=== PATIENT | male | born 1955 ===

== ENCOUNTER 2020-08-24 08:53 | Outpatient (REF) | payer OTHER, SELFPAY ==
[2020-08-24 10:06] LABS: Alanine Aminotransferase 25 U/L (0-40); Albumin Level 4.5 g/dL (3.5-5.0); Alkaline Phosphatase 98 U/L (39-117); Anion Gap 15 (12-20); Aspartate Amino Transferase 19 U/L (5-37); Bilirubin Total 1.1 mg/dL (0.0-1.0); Blood Urea Nitrogen 11 mg/dL (9-16); Calcium 9.5 mg/dL (8.4-10.2); Carbon Dioxide 28 mmol/L (22-29); Chloride 105 mmol/L (96-108); Estimated Glomerular Filt Rate > 60; Glucose Random 121 mg/dL (60-115); Potassium 4.4 mmol/l (3.3-5.1); Sodium 144 mmol/L (135-145); Total Protein 7.1 g/dL (6.5-8.0)
[2020-08-24 10:16] LABS: Estimated Average Glucose 123 mg/dL; Hemoglobin A1c % 5.9 %
== END 2020-08-24 08:54 | disposition home or self-care (01) ==
LOC: HO.LAB 08:53
PROVIDERS: PCP Internal Medicine; Visit Provider Internal Medicine
DX: R73.01 Impaired fasting glucose (principal); J45.909 Unspecified asthma, uncomplicated; G47.33 Obstructive sleep apnea (adult) (pediatric)
CPT/HCPCS: 36415; 80053; 83036

== ENCOUNTER → 2020-08-27 11:48 | Outpatient (BNVA) | payer OTHER, SELFPAY | PROVIDERS: PCP Internal Medicine; Referring Provider Internal Medicine; Visit Provider Urology | DX: N40.1 Benign prostatic hyperplasia with lower urinary tract symptoms (principal); R35.1 Nocturia; N20.0 Calculus of kidney; N28.1 Cyst of kidney, acquired | CPT/HCPCS: Q3014 ==

== ENCOUNTER → 2020-10-29 10:50 | Outpatient (BNVA) | payer OTHER, SELFPAY | PROVIDERS: Visit Provider Urology | DX: Z13.89 Encounter for screening for other disorder (principal) | CPT/HCPCS: Q3014 ==

== ENCOUNTER → 2020-11-03 09:01 | Outpatient (BNVA) | payer OTHER, SELFPAY | PROVIDERS: PCP Internal Medicine; Visit Provider Psychiatry & Neurology Neurology | DX: G47.33 Obstructive sleep apnea (adult) (pediatric) (principal); N40.1 Benign prostatic hyperplasia with lower urinary tract symptoms; R35.1 Nocturia; N28.1 Cyst of kidney, acquired; N20.0 Calculus of kidney; Z88.6 Allergy status to analgesic agent; Z88.0 Allergy status to penicillin; Z88.8 Allergy status to other drugs, medicaments and biological substances; Z99.89 Dependence on other enabling machines and devices | CPT/HCPCS: Q3014 ==

== ENCOUNTER 2021-01-18 08:20 | Outpatient (REF) | payer OTHER, SELFPAY ==
[2021-01-18 09:20] LABS: MANUAL DIFF FLAG NO
[2021-01-18 09:25] LABS: Basophils Percent Auto 0.5 % (0-2); Eosinophils Absolute Auto 0.2 X10*3/uL (0.0-0.4); Eosinophils Percent Auto 2.6 % (0-4); Hematocrit 47.8 % (42-52); Hemoglobin 15.7 g/dl (14.0-18.0); Imm Gran Abs Auto 0.01 X10*3/uL (0.00-0.03); Imm Gran Pct Auto 0.2 % (0.0-0.4); Lymphocytes Percent Auto 32.5 % (20-40); Mean Corpuscular HGB Conc 32.8 g/dl (31.0-36.0); Mean Corpuscular Hemoglobin 28.1 pg (27.0-33.0); Mean Corpuscular Volume 85.5 fL (80-98); Mean Platelet Volume 10.7 fL (9.4-12.4); Monocytes Absolute Auto 0.5 X10*3/uL (0.1-1.2); Monocytes Percent Auto 7.8 % (2-11); Neutrophils Absolute Auto 3.5 X10*3/uL (2.0-8.3); Neutrophils Percent Auto 56.4 % (45-73); Platelet Count 184 X10*3/uL (160-400); Red Blood Count 5.59 X10*6/uL (4.60-5.80); Red Cell Distribution Width 12.8 % (11.0-16.0); White Blood Count 6.3 X10*3/uL (4.8-10.8)
[2021-01-18 09:49] LABS: Estimated Average Glucose 126 mg/dL
[2021-01-18 09:58] LABS: Alanine Aminotransferase 33 U/L (0-40); Albumin Level 4.3 g/dL (3.5-5.0); Alkaline Phosphatase 94 U/L (39-117); Anion Gap 11 (12-20); Aspartate Amino Transferase 24 U/L (5-37); Bilirubin Total 0.9 mg/dL (0.0-1.0); Blood Urea Nitrogen 14 mg/dL (9-16); Calcium 9.1 mg/dL (8.4-10.2); Carbon Dioxide 26 mmol/L (22-29); Chloride 108 mmol/L (96-108); Cholesterol 154 mg/dL; Estimated Glomerular Filt Rate > 60; Glucose Random 125 mg/dL (60-115); HDL Cholesterol 46 mg/dL; LDL Cholesterol Calculated 82 mg/dl; Potassium 4.2 mmol/L (3.3-5.1); Sodium 141 mmol/L (135-145); Total Protein 6.8 g/dL (6.5-8.0); Triglycerides 133 mg/dL
== END 2021-01-18 08:21 | disposition home or self-care (01) ==
LOC: HO.LAB 08:20
PROVIDERS: PCP Internal Medicine; Visit Provider Internal Medicine
DX: E78.00 Pure hypercholesterolemia, unspecified (principal); I10 Essential (primary) hypertension; R73.01 Impaired fasting glucose
CPT/HCPCS: 36415; 80053; 80061; 83036; 85025

== ENCOUNTER → 2021-05-18 08:24 | Outpatient (REF) | payer OTHER, SELFPAY | LOC: HO.SL 08:24 | PROVIDERS: PCP Internal Medicine; Visit Provider Psychiatry & Neurology Neurology | DX: G47.33 Obstructive sleep apnea (adult) (pediatric) (principal) | CPT/HCPCS: 99211 ==

== ENCOUNTER 2021-10-21 10:17 | Outpatient (REF) | payer OTHER, SELFPAY ==
--- NOTE | ~2021-10-21 | US_ITS ---
EXAMINATION: US RETROPERITONEAL LIMITED (RENAL ONLY) CLINICAL INFORMATION: Calculus of kidney. COMPARISON: Renal ultrasound 01/22/2020. Ultrasound abdomen 11/05/2018. CT abdomen and pelvis 08/22/2014. TECHNIQUE: Real-time imaging of the kidneys. FINDINGS: RIGHT KIDNEY: 12.2 x 5.8 x 5.7 cm (SAG x AP x TRV). The kidney is normal in size, contour, and echogenicity. Renal cortical thickness is normal. No calculi or focal parenchymal lesions. No hydronephrosis. LEFT KIDNEY: 11.8 x 5.4 x 5.1 cm (SAG x AP x TRV). The kidney is normal in size, contour, and echogenicity. Renal cortical thickness is normal. No renal calculi or hydronephrosis. Subtle lucency centrally involving the lower pole of the left kidney. This could represent a cyst but a dilated calyx would also be considered. US/US renal BI IMPRESSION: 1. No evidence of radiopaque calculus or hydronephrosis. 2. Sonolucent area in the lower pole of the left kidney could represent an evolving cyst or a dilated calyx. Attention to follow-up.
== END 2021-10-21 10:18 | disposition home or self-care (01) ==
LOC: HO.US 10:17
PROVIDERS: PCP Internal Medicine; Visit Provider Urology
DX: N20.0 Calculus of kidney (principal); N28.1 Cyst of kidney, acquired
CPT/HCPCS: 76775

== ENCOUNTER → 2021-11-19 09:04 | Outpatient (BNVA) | payer OTHER, SELFPAY | PROVIDERS: PCP Internal Medicine; Visit Provider Urology | DX: N28.1 Cyst of kidney, acquired (principal) | CPT/HCPCS: Q3014 ==

== ENCOUNTER 2021-12-28 08:42 | Outpatient (REF) | payer OTHER, SELFPAY ==
[2021-12-28 09:29] LABS: MANUAL DIFF FLAG NO
[2021-12-28 10:05] LABS: Basophils Percent Auto 0.3 % (0-2); Eosinophils Absolute Auto 0.2 X10*3/uL (0.0-0.4); Eosinophils Percent Auto 2.9 % (0-4); Hematocrit 49.2 % (42.0-52.0); Hemoglobin 16.2 g/dl (14.0-18.0); Imm Gran Abs Auto 0.02 X10*3/uL (0.00-0.03); Imm Gran Pct Auto 0.3 % (0.0-0.4); Lymphocytes Absolute Auto 1.7 X10*3/uL (1.2-4.9); Lymphocytes Percent Auto 28.3 % (20-40); Mean Corpuscular HGB Conc 32.9 g/dl (31.0-36.0); Mean Corpuscular Hemoglobin 28.6 pg (27.0-33.0); Mean Corpuscular Volume 86.9 fL (80.0-98.0); Mean Platelet Volume 10.6 fL (9.4-12.4); Monocytes Absolute Auto 0.5 X10*3/uL (0.1-1.2); Monocytes Percent Auto 8.2 % (2-11); Neutrophils Absolute Auto 3.5 x10*3/uL (2.0-8.3); Platelet Count 160 X10*3/uL (160-400); Red Blood Count 5.66 X10*6/uL (4.60-5.80); Red Cell Distribution Width 12.9 % (11.0-16.0); White Blood Count 5.8 X10*3/uL (4.8-10.8)
[2021-12-28 10:08] LABS: Appearance Urine CLEAR; Color Urine YELLOW; Glucose Urine UA NEG (NEG); Leukocyte Esterase Urine NEG (NEG); Nitrite Urine NEG (NEG); Specific Gravity - Urine <= 1.005 (1.005-1.025); Urine Blood NEG (NEG); Urine Ketones NEG (NEG); Urine Protein NEG (NEG-TRACE)
[2021-12-28 11:17] LABS: Anion Gap 14 (12-20); Blood Urea Nitrogen 14 mg/dL (9-16); Calcium 9.8 mg/dL (8.4-10.2); Carbon Dioxide 26 mmol/L (22-29); Chloride 105 mmol/L (96-108); Estimated Glomerular Filt Rate > 60; Potassium 3.8 mmol/L (3.3-5.1); Sodium 141 mmol/L (135-145)
== END 2021-12-28 08:43 | disposition home or self-care (01) ==
LOC: HO.LAB 08:42
PROVIDERS: PCP Internal Medicine; Visit Provider Internal Medicine Hypertension Specialist
DX: N18.1 Chronic kidney disease, stage 1 (principal)
CPT/HCPCS: 36415; 80051; 81003; 82310; 82565; 84520; 85025

== ENCOUNTER 2022-01-18 08:59 | Outpatient (REF) | payer OTHER, SELFPAY ==
[2022-01-18 09:18] LABS: MANUAL DIFF FLAG NO
[2022-01-18 10:12] LABS: Basophils Percent Auto 0.3 % (0-2); Eosinophils Absolute Auto 0.1 X10*3/uL (0.0-0.4); Eosinophils Percent Auto 2.2 % (0-4); Hematocrit 49.1 % (42.0-52.0); Hemoglobin 16.2 g/dl (14.0-18.0); Imm Gran Abs Auto 0.02 X10*3/uL (0.00-0.03); Imm Gran Pct Auto 0.3 % (0.0-0.4); Lymphocytes Absolute Auto 1.6 X10*3/uL (1.2-4.9); Lymphocytes Percent Auto 27.3 % (20-40); Mean Corpuscular Hemoglobin 28.4 pg (27.0-33.0); Mean Platelet Volume 10.8 fL (9.4-12.4); Monocytes Absolute Auto 0.5 X10*3/uL (0.1-1.2); Monocytes Percent Auto 8.2 % (2-11); Neutrophils Absolute Auto 3.7 x10*3/uL (2.0-8.3); Neutrophils Percent Auto 61.7 % (45-73); Platelet Count 169 X10*3/uL (160-400); Red Blood Count 5.71 X10*6/uL (4.60-5.80); Red Cell Distribution Width 13.1 % (11.0-16.0)
[2022-01-18 10:59] LABS: Alanine Aminotransferase 27 U/L (0-40); Albumin Level 4.4 g/dL (3.5-5.0); Alkaline Phosphatase 96 U/L (39-117); Anion Gap 13 (12-20); Aspartate Amino Transferase 22 U/L (5-37); Bilirubin Total 1.2 mg/dL (0.0-1.0); Blood Urea Nitrogen 14 mg/dL (9-16); Calcium 9.2 mg/dL (8.4-10.2); Carbon Dioxide 27 mmol/L (22-29); Chloride 104 mmol/L (96-108); Cholesterol 149 mg/dL; Estimated Glomerular Filt Rate > 60; Glucose Random 119 mg/dL (60-115); HDL Cholesterol 43 mg/dL; LDL Cholesterol Calculated 87 mg/dl; Potassium 4.5 mmol/L (3.3-5.1); Sodium 139 mmol/L (135-145); Total Protein 6.9 g/dL (6.5-8.0); Triglycerides 96 mg/dL
== END 2022-01-18 09:00 | disposition home or self-care (01) ==
LOC: HO.LAB 08:59
PROVIDERS: PCP Internal Medicine; Visit Provider Internal Medicine
DX: E78.00 Pure hypercholesterolemia, unspecified (principal); G47.33 Obstructive sleep apnea (adult) (pediatric); I10 Essential (primary) hypertension; J45.909 Unspecified asthma, uncomplicated
CPT/HCPCS: 36415; 80053; 80061; 85025

== ENCOUNTER 2022-04-08 09:30 | Outpatient (RCR) | payer OTHER, SELFPAY ==
--- NOTE | 2022-05-02 10:59 | MHC.PT.DC ---
[facility] [place] Office [place] Office [place] Office [address] Keegan Shaw [address] [phone] F: [phone] F: [phone] F: [phone] F: [phone] Physical Therapy Discharge Report Diagnosis: VERTIGO Date of Surgery: Date of Evaluation: 03/29/22 Date of Discharge: 04/10/22 Treatments to Date: 3 Cancellations to Date: 0 No Shows to Date: 0 Discharge Status: Achieved Goals Improved Function Discharge Summary: Jose arrived stating he is feeling good. He has had no dizziness since last night. He was assessed in B ariza pikes and B roll test. He was negative for nystagmus and vertigo. He also did not present with any symptoms of vestibular hypofunction. He therefore no longer need PT. He was advised to return to PT in case of return of symptoms. Electronically signed by: KENNEDI DUNHAM PT, DPT Please sign and return to therapist. Thank you for your referral.
== END 2022-05-02 11:00 | disposition home or self-care (01) ==
LOC: HO.PT 09:30
PROVIDERS: PCP Internal Medicine; Visit Provider Otolaryngology
DX: H81.4 Vertigo of central origin (principal)
CPT/HCPCS: 95992; 97112; 97161

== ENCOUNTER 2022-07-14 09:18 | Outpatient (REF) | payer OTHER, SELFPAY ==
[2022-07-14 13:19] LABS: Alanine Aminotransferase 28 U/L (0-40); Albumin Level 4.4 g/dL (3.5-5.0); Alkaline Phosphatase 85 U/L (39-117); Anion Gap 11 (12-20); Aspartate Amino Transferase 23 U/L (5-37); Bilirubin Total 1.2 mg/dL (0.0-1.0); Blood Urea Nitrogen 14 mg/dL (9-16); Calcium 9.5 mg/dL (8.4-10.2); Carbon Dioxide 29 mmol/L (22-29); Chloride 105 mmol/L (96-108); Estimated Glomerular Filt Rate > 60; Glucose Random 128 mg/dL (60-115); Potassium 4.4 mmol/L (3.3-5.1); Prostate Specific Antigen 0.41 ng/mL (<0.05-4.0); Sodium 141 mmol/L (135-145); Total Protein 6.9 g/dL (6.5-8.0)
== END 2022-07-14 09:19 | disposition home or self-care (01) ==
LOC: HO.LAB 09:18
PROVIDERS: PCP Internal Medicine; Visit Provider Internal Medicine
DX: Z00.00 Encounter for general adult medical examination without abnormal findings (principal); E78.00 Pure hypercholesterolemia, unspecified; G47.33 Obstructive sleep apnea (adult) (pediatric); I10 Essential (primary) hypertension; Z12.5 Encounter for screening for malignant neoplasm of prostate
CPT/HCPCS: 36415; 80053; 84153

== ENCOUNTER 2022-10-31 11:32 | Outpatient (REF) | payer OTHER, SELFPAY ==
--- NOTE | ~2022-10-31 | US_ITS ---
EXAMINATION: US RETROPERITONEAL LIMITED (RENAL ONLY) CLINICAL INFORMATION: Cyst of kidney. COMPARISON: Ultrasound renal 10/21/2021 and 01/22/2020. TECHNIQUE: Real-time imaging of the kidneys. FINDINGS: RIGHT KIDNEY: 11.5 x 5.7 x 4.5 cm (SAG x AP x TRV). The kidney is normal in size, contour, and echogenicity. Renal cortical thickness is normal. No calculi or focal parenchymal lesions. No hydronephrosis. LEFT KIDNEY: 13.3 x 6.0 x 4.6 cm (SAG x AP x TRV). The kidney is normal in size, contour, and echogenicity. Renal cortical thickness is normal. No renal calculi or hydronephrosis. Some parapelvic cysts are present the largest measuring 1 cm in size. These are benign and need no additional imaging or follow-up. No solid renal masses are seen. US/US renal BI IMPRESSION: No significant abnormality is seen. The cysts present in the left kidney are benign Bosniak class I and no additional follow-up is indicated.
== END 2022-10-31 11:33 | disposition home or self-care (01) ==
LOC: HO.US 11:32
PROVIDERS: PCP Internal Medicine; Visit Provider Urology
DX: N28.1 Cyst of kidney, acquired (principal)
CPT/HCPCS: 76775

== ENCOUNTER 2022-11-28 09:10 | Outpatient (REF) | payer OTHER, SELFPAY ==
[2022-11-28 11:42] LABS: Alanine Aminotransferase 21 U/L (0-40); Albumin Level 4.3 g/dL (3.5-5.0); Alkaline Phosphatase 75 U/L (39-117); Anion Gap 13 (12-20); Aspartate Amino Transferase 22 U/L (5-37); Bilirubin Total 1.2 mg/dL (0.0-1.0); Blood Urea Nitrogen 15 mg/dL (9-16); Calcium 9.6 mg/dL (8.4-10.2); Carbon Dioxide 27 mmol/L (22-29); Chloride 106 mmol/L (96-108); Estimated Glomerular Filt Rate > 60; Glucose Random 106 mg/dL (60-115); Potassium 4.2 mmol/L (3.3-5.1); Sodium 142 mmol/L (135-145); Total Protein 6.8 g/dL (6.5-8.0)
[2022-11-28 12:25] LABS: Creatinine Urine 93.31 mg/dL; Microalbum/Creatinine Ratio Ur 131.8 ug/mg cr
[2022-11-28 12:41] LABS: Estimated Average Glucose 111 mg/dL; Hemoglobin A1C 161.6131 umol/L; Hemoglobin A1c % 5.5 %
== END 2022-11-28 09:11 | disposition home or self-care (01) ==
LOC: HO.LAB 09:10
PROVIDERS: PCP Internal Medicine; Visit Provider Internal Medicine
DX: E11.9 Type 2 diabetes mellitus without complications (principal); G47.33 Obstructive sleep apnea (adult) (pediatric); I10 Essential (primary) hypertension
CPT/HCPCS: 36415; 80053; 82043; 83036

== ENCOUNTER → 2022-12-27 09:49 | Outpatient (BNVA) | payer OTHER, SELFPAY | PROVIDERS: PCP Internal Medicine; Visit Provider Urology | DX: N40.1 Benign prostatic hyperplasia with lower urinary tract symptoms (principal); R35.1 Nocturia; N28.1 Cyst of kidney, acquired | CPT/HCPCS: 99212 ==

== ENCOUNTER 2023-02-27 09:02 | Outpatient (REF) | payer OTHER, SELFPAY ==
[2023-02-27 09:17] LABS: MANUAL DIFF FLAG NO
[2023-02-27 10:16] LABS: Basophils Percent Auto 0.4 % (0-2); Eosinophils Absolute Auto 0.3 X10*3/uL (0.0-0.4); Eosinophils Percent Auto 5.1 % (0-4); Hematocrit 49.5 % (42.0-52.0); Hemoglobin 16.1 g/dl (14.0-18.0); Imm Gran Abs Auto 0.02 X10*3/uL (0.00-0.03); Imm Gran Pct Auto 0.4 % (0.0-0.4); Lymphocytes Absolute Auto 1.4 X10*3/uL (1.2-4.9); Lymphocytes Percent Auto 27.4 % (20-40); Mean Corpuscular HGB Conc 32.5 g/dl (31.0-36.0); Mean Corpuscular Hemoglobin 28.4 pg (27.0-33.0); Mean Corpuscular Volume 87.5 fL (80.0-98.0); Monocytes Absolute Auto 0.4 X10*3/uL (0.1-1.2); Monocytes Percent Auto 7.6 % (2-11); Neutrophils Absolute Auto 3.1 x10*3/uL (2.0-8.3); Neutrophils Percent Auto 59.1 % (45-73); Platelet Count 148 X10*3/uL (160-400); Red Blood Count 5.66 X10*6/uL (4.60-5.80); Red Cell Distribution Width 13.3 % (11.0-16.0); White Blood Count 5.3 X10*3/uL (4.8-10.8)
[2023-02-27 11:02] LABS: Alanine Aminotransferase 17 U/L (0-40); Albumin Level 4.4 g/dL (3.5-5.0); Alkaline Phosphatase 63 U/L (39-117); Anion Gap 17 (12-20); Aspartate Amino Transferase 20 U/L (5-37); Blood Urea Nitrogen 18 mg/dL (9-16); Calcium 9.9 mg/dL (8.4-10.2); Carbon Dioxide 23 mmol/L (22-29); Chloride 107 mmol/L (96-108); Cholesterol 139 mg/dL; Estimated Glomerular Filt Rate > 60; Glucose Random 94 mg/dL (60-115); HDL Cholesterol 41 mg/dL; LDL Cholesterol Calculated 84 mg/dl; Potassium 4.2 mmol/L (3.3-5.1); Sodium 143 mmol/L (135-145); Total Protein 7.2 g/dL (6.5-8.0); Triglycerides 71 mg/dL
[2023-02-27 11:04] LABS: Creatinine Urine 82.07 mg/dL; Microalbum/Creatinine Ratio Ur 48.7 ug/mg cr
[2023-02-27 11:10] LABS: Estimated Average Glucose 105 mg/dL; Hemoglobin A1c % 5.3 %
== END 2023-02-27 09:03 | disposition home or self-care (01) ==
LOC: HO.LAB 09:02
PROVIDERS: PCP Internal Medicine; Visit Provider Internal Medicine
DX: Z12.5 Encounter for screening for malignant neoplasm of prostate (principal); E78.00 Pure hypercholesterolemia, unspecified; E11.9 Type 2 diabetes mellitus without complications; G47.33 Obstructive sleep apnea (adult) (pediatric); I10 Essential (primary) hypertension; R80.9 Proteinuria, unspecified
CPT/HCPCS: 36415; 80053; 80061; 82043; 83036; 84153; 85025

== ENCOUNTER 2023-05-29 09:17 | Outpatient (REF) | payer OTHER, SELFPAY ==
[2023-05-29 10:44] LABS: Estimated Average Glucose 103 mg/dL; Hemoglobin A1c % 5.2 % (<6.0)
[2023-05-29 11:33] LABS: Alanine Aminotransferase 14 U/L (0-40); Albumin Level 4.4 g/dL (3.5-5.0); Alkaline Phosphatase 68 U/L (39-117); Anion Gap 14 (12-20); Aspartate Amino Transferase 18 U/L (5-37); Bilirubin Total 0.9 mg/dL (0.0-1.0); Blood Urea Nitrogen 20 mg/dL (9-16); Calcium 10.1 mg/dL (8.4-10.2); Carbon Dioxide 28 mmol/L (22-29); Chloride 106 mmol/L (96-108); Estimated Glomerular Filt Rate > 60; Glucose Random 93 mg/dL (60-115); Potassium 4.7 mmol/L (3.3-5.1); Sodium 143 mmol/L (135-145); Total Protein 7.3 g/dL (6.5-8.0)
[2023-05-29 11:44] LABS: Vitamin B12 778 pg/mL (200-900)
[2023-05-29 11:53] LABS: Thyroid Stimulating Hormone 1.78 uIU/mL (0.32-4.0)
== END 2023-05-29 09:18 | disposition home or self-care (01) ==
LOC: HO.LAB 09:17
PROVIDERS: PCP Internal Medicine; Visit Provider Internal Medicine
DX: E11.9 Type 2 diabetes mellitus without complications (principal); G47.33 Obstructive sleep apnea (adult) (pediatric); G54.8 Other nerve root and plexus disorders; I10 Essential (primary) hypertension; R63.4 Abnormal weight loss; R80.9 Proteinuria, unspecified
CPT/HCPCS: 36415; 80053; 82607; 83036; 84443

== ENCOUNTER 2023-08-28 09:27 | Outpatient (REF) | payer MEDICARE, OTHER, SELFPAY ==
[2023-08-28 11:00] LABS: Estimated Average Glucose 108 mg/dL; Hemoglobin A1c % 5.4 % (<6.0)
[2023-08-28 11:27] LABS: Alanine Aminotransferase 19 U/L (0-40); Alkaline Phosphatase 75 U/L (39-117); Anion Gap 11 (12-20); Aspartate Amino Transferase 19 U/L (5-37); Bilirubin Total 0.9 mg/dL (0.0-1.0); Blood Urea Nitrogen 18 mg/dL (9-16); Calcium 9.4 mg/dL (8.4-10.2); Carbon Dioxide 28 mmol/L (22-29); Chloride 107 mmol/L (96-108); Estimated Glomerular Filt Rate > 60; Glucose Random 97 mg/dL (60-115); Potassium 3.7 mmol/L (3.3-5.1); Sodium 142 mmol/L (135-145); Total Protein 7.3 g/dL (6.5-8.0)
== END 2023-08-28 09:28 | disposition home or self-care (01) ==
LOC: HO.LAB 09:27
PROVIDERS: PCP Internal Medicine; Visit Provider Internal Medicine
DX: E11.9 Type 2 diabetes mellitus without complications (principal); G47.33 Obstructive sleep apnea (adult) (pediatric); I10 Essential (primary) hypertension
CPT/HCPCS: 36415; 80053; 83036

== ENCOUNTER 2023-09-01 11:00 | Outpatient (RCR) | payer MEDICARE, OTHER, SELFPAY ==
[2023-08-25 10:07] VITALS: BP 129/73; PULSE 69
--- NOTE | 2023-08-25 10:56 | MHC.PT.EP ---
[facility] [place] Office [place] Office [place] Office [address] [phone] F: [phone] F: [phone] F: [phone] F: [phone] Physical Therapy Plan of Care Date of Evaluation: 08/25/23 Date of Surgery: NA Diagnosis: Pain in thoracic spine Upper back pain Assessment: Jose is a 68 year old male who is referred to PT for pain in thoracic spine . He reports of having h/o chronic neck, upper back and lower back pain however his upper back pain got worse recently. He reports of feeling numb in his upper back for about 1 year and therefore decided to seek PT. He denies any trauma or falls. On PT examination he presented with 8/10 pain in thoracic spine, TTP over L UT, B thoracic paraspinals, presented with decreased cervical and thoracic ROM, decreased scap muscle strength and altered posture. He lives with his and is independent with all ADLS however has pain with them. He is unemployed. He would benefit from skilled PT to address the aforementioned impairments and improve tolerance to functional activities. Frequency and Duration: The patient will be seen 2/week for 5 weeks. Short Term Goals: 1. Pt will have 50% decrease in pain which will enable him to tolerate sitting without any discomfort in 2 weeks. 2. Pt will be able to move thoracic and cervical spine through all planes of motion which will enable him to perform self care activities with pain no more than 2/10 on 3 weeks. Mcfp Goals: 1. Pt will demonstrate an increase in muscle strength by 1 grade which will enable him to perform all IADLS without any difficulty in 5 weeks. 2. Pt will be independent with all HEP for symptom management and maintenance following d/c in 5 weeks. Treatment Plan: Modalities to reduce pain, spasms and effusion. Manual therapy to restore motion and function. Therapeutic exercise to improve strength and flexibility. Neuromuscular re-education for posture and balance. Therapeutic activities to return to functional activities of daily living. Electronically signed by: Josi Hill PT DPT Please sign and return to therapist. Thank you for your referral.
--- NOTE | 2023-09-27 09:57 | MHC.PT.DC ---
[facility] [place] [facility] [place] Office [place] Office [address] Keegan Shaw [address] [phone] F: [phone] F: [phone] F: [phone] F: [phone] Physical Therapy Discharge Report Diagnosis: Pain in thoracic spine Upper back pain Date of Surgery: NA Date of Evaluation: 08/25/23 Date of Discharge: 09/27/23 Treatments to Date: 3 Cancellations to Date: 0 No Shows to Date: 0 Discharge Status: Physician Discontinued Tx Discharge Summary: Jose called and stated that he would be having an MRI for his back and was advised by his physician to stop PT. He is therefore being d/c from PT. Electronically signed by: Josi Hill PT DPT Please sign and return to therapist. Thank you for your referral.
== END 2023-09-27 09:57 | disposition home or self-care (01) ==
LOC: HO.PT 11:00
PROVIDERS: PCP Internal Medicine; Visit Provider Internal Medicine
DX: M54.6 Pain in thoracic spine (principal)
CPT/HCPCS: 97110; 97112; 97161

== ENCOUNTER 2023-12-01 09:12 | Outpatient (REF) | payer MEDICARE, OTHER, SELFPAY ==
[2023-12-01 11:16] LABS: Estimated Average Glucose 120 mg/dL; Hemoglobin A1c % 5.8 % (<6.0); Total Hemoglobin (HGBA1C) 3840.4592 umol/L
[2023-12-01 11:26] LABS: Alanine Aminotransferase 19 U/L (0-40); Alkaline Phosphatase 64 U/L (39-117); Anion Gap 13 (12-20); Aspartate Amino Transferase 20 U/L (5-37); Bilirubin Total 0.8 mg/dL (0.0-1.0); Blood Urea Nitrogen 16 mg/dL (9-16); Calcium 9.8 mg/dL (8.4-10.2); Carbon Dioxide 26 mmol/L (22-29); Chloride 105 mmol/L (96-108); Estimated Glomerular Filt Rate > 60; Glucose Random 99 mg/dL (60-115); Potassium 3.7 mmol/L (3.3-5.1); Sodium 140 mmol/L (135-145); Total Protein 7.6 g/dL (6.5-8.0)
== END 2023-12-01 09:13 | disposition home or self-care (01) ==
LOC: HO.LAB 09:12
PROVIDERS: PCP Internal Medicine; Visit Provider Internal Medicine
DX: M54.9 Dorsalgia, unspecified (principal); E11.9 Type 2 diabetes mellitus without complications; I10 Essential (primary) hypertension
CPT/HCPCS: 36415; 80053; 83036

== ENCOUNTER 2024-03-01 09:19 | Outpatient (REF) | payer MEDICARE, OTHER, SELFPAY ==
[2024-03-01 10:34] LABS: Alanine Aminotransferase 25 U/L (0-40); Albumin Level 4.3 g/dL (3.5-5.0); Alkaline Phosphatase 62 U/L (39-117); Anion Gap 12 (12-20); Aspartate Amino Transferase 20 U/L (5-37); Bilirubin Total 0.9 mg/dL (0.0-1.0); Blood Urea Nitrogen 20 mg/dL (9-16); Calcium 9.9 mg/dL (8.4-10.2); Carbon Dioxide 29 mmol/L (22-29); Chloride 106 mmol/L (96-108); Cholesterol 146 mg/dL (<200); Estimated Glomerular Filt Rate > 60; Glucose Random 103 mg/dL (60-115); HDL Cholesterol 48 mg/dL (>40); LDL Cholesterol Calculated 89 mg/dL (<100); Potassium 4.6 mmol/L (3.3-5.1); Sodium 142 mmol/L (135-145); Total Protein 7.5 g/dL (6.5-8.0); Triglycerides 49 mg/dL (<150)
[2024-03-01 10:52] LABS: Estimated Average Glucose 111 mg/dL; Hemoglobin A1c % 5.5 % (<6.0)
[2024-03-01 11:03] LABS: Prostate Specific Antigen Scr 0.32 ng/mL (<0.05-4.0)
[2024-03-01 12:10] LABS: Creatinine Urine 110.13 mg/dL; Microalbum/Creatinine Ratio Ur 41.7 ug/mg cr (<30)
== END 2024-03-01 09:20 | disposition home or self-care (01) ==
LOC: HO.LAB 09:19
PROVIDERS: PCP Internal Medicine; Visit Provider Internal Medicine
DX: E11.9 Type 2 diabetes mellitus without complications (principal); E78.00 Pure hypercholesterolemia, unspecified; I10 Essential (primary) hypertension; M54.9 Dorsalgia, unspecified; N40.0 Benign prostatic hyperplasia without lower urinary tract symptoms; Z12.5 Encounter for screening for malignant neoplasm of prostate
CPT/HCPCS: 36415; 80053; 80061; 82043; 82570; 83036; 84153

== ENCOUNTER 2024-04-30 10:01 | Outpatient (AMB) | payer MEDICARE, MEDICAID, SELFPAY ==
--- NOTE | 2024-04-30 10:01 | A.OFFVIS_ITS ---
Vital Signs 04/30/24 10:02 Height 6 ft Weight 180 lb 4 oz BMI 24.4 BP 118/78 Blood Pressure Location Rt brachial Position Sitting Respiration 16 Pulse 70 Pulse Source Pulse Oximeter Pulse Oximetry (%) 98 Oxygen Delivery Method Room Air Intake Visit Reasons: Follow Up Intake Note: Pt presents to the office for a 6 month follow up for ERIN. Trophy Assembler Required: Yes Trophy Assembler Services: Trophy Assembler Present Trophy Assembler Name: Tara Regalado CMA Allergies aspirin Allergy (Unknown, Verified 04/30/24 10:02) Unknown penicillin V Allergy (Unknown, Verified 04/30/24 10:02) Unknown spironolactone [Aldactone] Allergy (Unknown, Verified 04/30/24 10:02) Unknown HPI Comments Details: 69y/o male calls for follow up. Sleep study was done on Results- AHI 10 O2 renae 86% He is using his CPAP regularly . Rvantmdv-7-13 Compliance report- 100% usage hrs-8hrs 13 min AHI-2 Sleeps better with CPAP and daytime functioning has improved. Leg movements are better. [facility] Medical History BPH associated with nocturia Renal cyst Renal stones Surgical History History of hand surgery Hx of shoulder surgery Family History Father No problems noted. Mother No problems noted. Physical Exam Vital Signs: Last Vital Signs Pulse 70 04/30/24 10:02 Resp 16 04/30/24 10:02 BP 118/78 04/30/24 10:02 Pulse Ox 98 04/30/24 10:02 Oxygen Delivery Method Room Air 04/30/24 10:02 BMI result Body Mass Index 24.4 Alert Awake oriented to time, place and person Mood - stable Speech- normal Cognition- intact Assessment & Plan Assessment & Plan (1) Obstructive sleep apnea: Code(s): G47.33 - Obstructive sleep apnea (adult) (pediatric) Category: Medical Plan: Continue AutoPAP 5-15 cm of water. compliance stressed will follow up to ensure compliance and therapy response Prescription for new supplies and CPAP sent to [facility] Coding Level of Care Code Est Pt Level 4 (75916) Diagnoses Obstructive sleep apnea G47.33
[2024-04-30 10:02] VITALS: BP 118/78; PULSE 70; RESP 16; O2SAT 98; BMI 24.4
== END 2024-04-30 10:22 | disposition home or self-care (01) ==
PROVIDERS: PCP Internal Medicine; Visit Provider Psychiatry & Neurology Neurology
DX: G47.33 Obstructive sleep apnea (adult) (pediatric) (principal)
CPT/HCPCS: 99214

== ENCOUNTER → 2024-04-30 10:01 | Outpatient (BNVA) | payer MEDICARE, OTHER, SELFPAY | PROVIDERS: PCP Internal Medicine; Visit Provider Psychiatry & Neurology Neurology | DX: G47.33 Obstructive sleep apnea (adult) (pediatric) (principal); Z99.89 Dependence on other enabling machines and devices | CPT/HCPCS: 99212 ==

== ENCOUNTER 2024-06-26 09:12 | Outpatient (REF) | payer MEDICARE, MEDICAID, SELFPAY ==
[2024-06-26 11:08] LABS: Estimated Average Glucose 111 mg/dL; Hemoglobin A1c % 5.5 % (<6.0); Total Hemoglobin (HGBA1C) 3885.7664 umol/L
[2024-06-26 11:36] LABS: Alanine Aminotransferase 37 U/L (0-40); Albumin Level 4.2 g/dL (3.5-5.0); Alkaline Phosphatase 62 U/L (39-117); Anion Gap 16 (12-20); Aspartate Amino Transferase 25 U/L (5-37); Bilirubin Total 1.2 mg/dL (0.0-1.0); Blood Urea Nitrogen 16 mg/dL (9-16); Calcium 9.3 mg/dL (8.4-10.2); Carbon Dioxide 25 mmol/L (22-29); Chloride 106 mmol/L (96-108); Cholesterol 128 mg/dL (<200); Estimated Glomerular Filt Rate > 60; Glucose Random 102 mg/dL (60-115); HDL Cholesterol 43 mg/dL (>40); LDL Cholesterol Calculated 73 mg/dL (<100); Potassium 3.9 mmol/L (3.3-5.1); Sodium 143 mmol/L (135-145); Triglycerides 63 mg/dL (<150)
== END 2024-06-26 09:13 | disposition home or self-care (01) ==
LOC: HO.LAB 09:12
PROVIDERS: PCP Internal Medicine; Visit Provider Internal Medicine
DX: E11.9 Type 2 diabetes mellitus without complications (principal); E78.00 Pure hypercholesterolemia, unspecified; I10 Essential (primary) hypertension; R80.8 Other proteinuria
CPT/HCPCS: 36415; 80053; 80061; 83036

== ENCOUNTER 2024-08-20 10:52 | Outpatient (AMB) | payer OTHER, MEDICAID, SELFPAY ==
--- NOTE | 2024-08-20 10:58 | HO.NEPHOV ---
Vital Signs 08/20/24 10:59 Height 6 ft Weight 184 lb BMI 25.0 BP 112/72 Blood Pressure Location Rt brachial Position Sitting Pulse 79 Pulse Source Pulse Oximeter Pulse Oximetry (%) 97 Oxygen Delivery Method Room Air Intake Visit Reasons: Previous patient/ Conf Body Corporate Manager Required: No Body Corporate Manager Services: Body Corporate Manager Offered & Declined ( will translate ) Accompanied by: Spouse Allergies aspirin Allergy (Unknown, Verified 08/20/24 11:01) Unknown penicillin V Allergy (Unknown, Verified 08/20/24 11:01) Unknown spironolactone [Aldactone] Allergy (Unknown, Verified 08/20/24 11:01) Unknown Medication List - Last Reconciled 08/20/24 by Phoenix Charles MD albuterol sulfate 90 mcg/actuation 0 mcg inhalation atorvastatin 80 mg PO DAILY celecoxib (Celebrex) 200 mg PO DAILY cetirizine 10 mg PO DAILY diclofenac sodium 1% 4 grams topical QID esomeprazole magnesium 40 mg PO DAILY fluoxetine 20 mg PO QAM fluticasone propionate 50 mcg/actuation 1 spray intranasal DAILY lorazepam 0.5 mg PO BID PRN losartan 25 mg PO DAILY metoprolol succinate ER 100 mg PO DAILY omeprazole 40 mg PO DAILY zolpidem 10 mg PO BEDTIME HPI Comments Details: Alondra is a pleasant 69-year-old man with a history of diabetes mellitus in the past. He was prescribed metformin but however with the diet and exercise and some weight loss he has been staying away from anti diabetic medications. Blood sugar has been well controlled. He did have microalbuminuria in the past. He is here for annual follow-up. He was accompanied by his . No specific complaints today. [facility] Medical History BPH associated with nocturia Renal cyst Renal stones Surgical History History of hand surgery Hx of shoulder surgery Family History Father No problems noted. Mother No problems noted. Review of Systems Const Denies fever(s) and Denies weight loss Card Denies chest pain Resp Denies cough and Denies hemoptysis GI Denies abdominal pain, Denies diarrhea and Denies nausea Musc Denies back pain Neuro Denies focal weakness Physical Exam Vital Signs: Last Vital Signs Pulse 79 08/20/24 10:59 BP 112/72 08/20/24 10:59 Pulse Ox 97 08/20/24 10:59 Oxygen Delivery Method Room Air 08/20/24 10:59 BMI result Body Mass Index 25.0 Comfortable Neck supple no JVD. Lungs entry equal no rales. Heart S1-S2 heard no gallop or rub. Abdomen soft nontender. Neuro alert awake oriented. No asterixis. Extremities no edema. Results Reviewed Nephrology Results: Hgb 16.1 g/dl (14.0-18.0) 02/27/23 WBC 5.3 X10*3/uL (4.8-10.8) 02/27/23 Plt Count 148 X10*3/uL (160-400) L 02/27/23 Sodium 143 mmol/L (135-145) 06/26/24 Potassium 3.9 mmol/L (3.3-5.1) 06/26/24 Chloride 106 mmol/L (96-108) 06/26/24 Carbon Dioxide 25 mmol/L (22-29) 06/26/24 BUN 16 mg/dL (9-16) 06/26/24 Creatinine 0.85 mg/dL (0.5-1.4) 06/26/24 Calcium 9.3 mg/dL (8.4-10.2) 06/26/24 Urine Creatinine 110.13 mg/dL 03/01/24 Assessment & Plan Assessment & Plan (1) Renal cyst: Code(s): N28.1 - Cyst of kidney, acquired Category: Medical Plan Duchesne has a history of microalbuminuria. At present blood pressure is well controlled. Blood sugars have been well controlled. Continue with losartan for renal protection. Monitor urine protein excretion. Encouraged him to continue to stay on low-sodium diet and keep monitoring blood sugars at home. I have not made any changes today. I will be happy to follow him along with you as needed Orders: Orders Creatinine Urine 6 Months N28.1 - Cyst of kidney, acquired Basic Metabolic Panel 6 Months N28.1 - Cyst of kidney, acquired UA and rflx microscopic 6 Months N28.1 - Cyst of kidney, acquired Total Protein Urine Random 6 Months N28.1 - Cyst of kidney, acquired Coding Level of Care Code Est Pt Level 4 (43995) Diagnoses Renal cyst N28.1
[2024-08-20 10:59] VITALS: BP 112/72; PULSE 79; O2SAT 97; BMI 25.0
--- OUTSIDE RECORDS SUMMARY | 2024-08-20 12:28 | XMS_ITS | Clinical Summary ---
Author Organization [facility] Address [address] [place] [address] Phone Care Team Providers Care Carbonizer Tester Name Role Phone Jeannette Zelaya MD Primary Care Provider Allergies Active Allergy Reactions Criticality Noted Date Comments Tre Inhibitors Other (see comments) 09/28/2020 Penicillin V Other (see comments) 09/28/2020 Medications acetaminophen (TYLENOL) 500 MG tablet Take as needed Active atorvastatin (LIPITOR) 40 MG tablet Take 1 tablet by mouth 1 (one) time each day Active celecoxib (CeleBREX) 200 MG capsule Take 1 capsule by mouth 1 (one) time each day Active cetirizine (ZyrTEC) 10 MG tablet Take 1 tablet by mouth 1 (one) time each day Active esomeprazole (NexIUM) [address] capsule Take 1 capsule by mouth 1 (one) time each day Active FLUoxetine (PROzac) 20 MG capsule Take 3 capsules by mouth 1 (one) time each day Active fluticasone (FLONASE) 50 MCG/ACT nasal spray Active raNITIdine (ZANTAC) 300 MG tablet Take 1 tablet by mouth every night Active zolpidem (AMBIEN) 10 MG tablet Take 1 tablet by mouth at bed time Active LORazepam (ATIVAN) 0.5 MG tablet TAKE ONE TABLET BY MOUTH TWICE A DAY NEEDED FOR SEVERE ANXIETY ONLY 12/09/2020 Active metoprolol succinate XL (TOPROL-XL) 100 MG 24 hr tablet Take 100 mg by mouth 1 (one) time each day 12/01/2020 Active losartan (COZAAR) 25 MG tablet Take 25 mg by mouth 1 (one) time each day Active metFORMIN XR (GLUCOPHAGE-XR) 500 MG 24 hr tablet Take 500 mg by mouth in the morning and 500 mg in the evening. 11/30/2022 Active Active Problems Problem Noted Date Diagnosed Date Chronic kidney disease stage 1 09/28/2020 Hypertensive renal disease 09/28/2020 Proteinuria 09/28/2020 Family History Medical History Relation Comments Stroke Father Diabetes Mother Heart disease Mother Hypertension Mother Stroke Mother Hypertension Sibling Relation Status Comments Father Mother Sibling Social History Tobacco Use Types Packs/Day Years Used Date Smoking Tobacco: Never Alcohol Use Standard Drinks/Week Comments Yes 0 (1 standard drink = 0.6 oz pure alcohol) Alcoholic Drinks/day: Occasional social drink Sex and Gender Information Value Date Recorded Sex Assigned at Not on file Legal Sex Male 5:03 PM EST Gender Identity Not on file Sexual Orientation Not on file Last Filed Vital Signs Vital Sign Reading Time Taken Comments Blood Pressure 120/70 01/05/2023 1:06 PM EDT Pulse 65 01/05/2023 1:06 PM EDT Temperature - - Respiratory Rate - - Oxygen Saturation 96% 01/05/2023 1:06 PM EDT Inhaled Oxygen Concentration - - Weight 84.6 kg (186 lb 9.6 oz) 01/05/2023 1:06 P M EDT Height - - Body Mass Index - - Plan of Treatment Health Maintenance Due Date Last Done Comments Pneumococcal Vaccine: 65+ Ye ars (1 of 2 - PCV) 02/14/1962 Colorectal Cancer Screening: Annual FOBT 02/14/2005 Colorectal Cancer Screening: Colonoscopy 02/14/2005 Colorectal Cancer Screening: Sigmoidoscopy 02/14/2005 Influenza Vaccine (#1) 2024 Hepatitis B Vaccine Aged Out No longe r eligible based on patient's age to complete this topic Insurance [facility] ([id number]) [place] [id number] [facility] ([id number]) [place] [id number] Care Teams Carbonizer Tester Relationship Specialty Start Date End Date Jeannette Zelaya MD [address] [facility] [address] [place], [place] PCP - General 08/10/20
== END 2024-08-20 11:15 | disposition home or self-care (01) ==
PROVIDERS: PCP Internal Medicine; Visit Provider Internal Medicine Hypertension Specialist
DX: N28.1 Cyst of kidney, acquired (principal)
CPT/HCPCS: 99214

== ENCOUNTER → 2024-08-20 10:52 | Outpatient (BNVA) | payer MEDICARE, MEDICAID, SELFPAY | PROVIDERS: PCP Internal Medicine; Visit Provider Internal Medicine Hypertension Specialist ==

== ENCOUNTER 2024-11-19 09:12 | Outpatient (REF) | payer OTHER, MEDICAID, SELFPAY ==
--- OUTSIDE RECORDS SUMMARY | 2024-11-19 09:54 | XMS_ITS ---
Author Organization [facility] Address [address] [place] [address] Care Team Providers Care Ginseng Farmer Name Role Phone Jeannette Zelaya Primary Care Provider Unavailab Pete Anders [phone] REASON FOR VISIT pantoprazole Encounters Encounter Location Date Provider Diagnosis [facility] [address] [place] [address] 10/17/2023 Pete Henson Plan Of Treatment No Information Progress Notes * LEO HACKETTDOB:1955 (69 yo M)Acc No.[id number]:10/17/2023 Patient:?LEO HACKETT :1955???Age:68 Y???Sex:Male Address:[address] [place] [address] Subjective: * Chief Complaints: * ???Pantoprazole * Medical History:? * Surgical History:? * Hospitalization/Major Diagno stic Procedure:? * Medications:? Objective: * Vitals:? * Physical Examination:? Assessment: Plan: * Treatment: * Procedure Codes:? * * Date:?
--- OUTSIDE RECORDS SUMMARY | 2024-11-19 09:54 | XMS_ITS | Clinical Summary ---
Author Organization [facility] Address [address] [place] [address] Phone Care Team Providers Care Marketing Development Specialist Name Role Phone Jaennette Zelaya MD Primary Care Provider Allergies Active [...] Due Date Last Done Comments Pneumococcal Vaccine: 50+ Ye ars (1 of 2 - PCV) 02/14/1975 Colorectal Cancer Screening: Annual FOBT 02/14/2005 Colorectal Cancer Screening: Colonoscopy 02/14/2005 Colorectal Cancer Screening: Sigmoidoscopy 02/14/2005 Influenza Vaccine (Season Ended) 2025 Hepatitis B Vaccine Aged Out No longe r eligible based on patient's age to complete this topic Insurance [facility] ([id number]) [place] [id number] [facility] ([id number]) [place] [id number] Care Teams Marketing Development Specialist Relationship Specialty Start Date End Date Jeannette Zelaya MD [address] [facility] [address] [place], [place] PCP - General 08/10/20
--- OUTSIDE RECORDS SUMMARY | 2024-11-19 09:54 | XMS_ITS ---
Author Organization [facility] Address [address] [place] [address] Care Team Providers Care Veterinary Physiologist Name Role Phone Jeannette Zelaya Primary Care Provider UnavailPete Neff [phone] Medications Medication SIG (Take, Route, Frequency, Duration) Notes Start Date End Date Status Pantoprazole Sodium 40 MG 1 tablet Orall y Once a day for 90 days 09/17/2023 Active Encounters Encounter Location Date Provider Diagnosis [facility] [address] [place] [address] 09/17/2023 Pete Henson Plan Of Treatment Medication Medication Name Sig Start Date Stop Date Notes Pantoprazole Sodium 40 MG 1 tablet Orall y Once a day for 90 days 09/17/2023 Progress Notes * LEO HACKETTDOB:1955 (68 yo M)Acc No.[id number]:09/17/2023 Patient:?LEO HACKETT :1955???Age:68 Y???Sex:Male Address:[address] [place] [address] * Refills? Start Pantoprazole Sodium Tablet Delayed Release, 40 MG, Orally, 90 Tablet, 1 tablet, Once a day, 90 days, Refills=3 * true * Date:? Generated for Seda alexander/Mary/eTransmitting on:?11/19/2024 09:54 AM EDT
--- OUTSIDE RECORDS SUMMARY | 2024-11-19 09:54 | XMS_ITS | Patient Health Record ---
Author Organization [facility] Address [address] [place] [address] Care Team Providers Care Machine Zipper Trimmer Name Role Phone Jeannette Zelaya Primary Care Provider Pete Deshpande Unavailable [phone] Allergies Allergen (clinical drug ingredient) Drug/Non Drug Allergy documented on EMR Reaction Allergy Type Onset Date Status Penicillin Unknown Drug Allergy Active Reason For Referral No Information Medications Medication SIG (Take, Route, Frequency, Duration) Notes Start Date End Date Status CeleBREX 200 MG 1 capsule with food Orally Once a day Active Cetirizine HCl 10 MG 1 tablet Orally Onc e a day Active Metoprolol Succinate ER 100 MG 1 tablet Orally Once a day Active Esomeprazole Magnesium 40 MG TAKE 1 CAPSULE BY MOUTH EVERY DAY Orally Once a day for 90 days Active Pantoprazole Sodium 40 MG 1 tablet Orall y Once a day for 90 days 09/17/2023 Active Esomeprazole Magnesium 40 1 capsule Oral ly Once a day for 30 Active Ambien 10 MG 1 tablet at bedtime as needed Orally Once a day Active ZyrTEC Active LORazepam 1 MG 1 -1/2tablet as need ed Orally 2 times a day Active Ranitidine HCl 300 MG 1 tablet Orally On ce a day for 30 day(s) Active FLUoxetine HCl 20 MG 1 capsule in the mo rning Orally three times a day Active Fluoxetine 20 mg one tablet orally on ce a day Active Atorvastatin Calcium 40 MG 1 tablet Oral ly Once a day Active Meclizine HCl 25 MG 1 tablet as needed O rally up to 3 times a day as needed Active tylenol 500 mg 1 tab Oral as needed Active Immunizations Vaccine Route Administration Date Status Comme nts Influenza Unknown 03/31/2017 Administered Influenza Unknown 03/31/2018 Administered Social History Tobacco Use: Social History Observation Description Date Details (start date - stop date) Never Smoker NA - NA Tobacco Use/Smoking Question Answer Notes Patient is a nonsmoker Alcohol Screen Question Answer Notes Did you have a drink contain ing alcohol in the past year? Yes How often did you have a dri nk containing alcohol in the past year? Monthly or less (1 point) How many drinks did you have on a typical day when you were drinking in the past year? 1 or 2 drinks (0 point) How often did you have 6 or more drinks on one occasion in the past year? Never (0 point) Points 1 Interpretation Negative Section Notes: Nonsmoker; very occasional a lcohol Nonsmoker; very occasional a lcohol Problems Problem Type SNOMED Code ICD Code Onset Dates Problem Status W/U Status Risk Notes Problem [id number] Encounter for screening for malignant neoplasm of colon (Z12.11) Active confirmed Problem 983189320 Abdominal bloati ng (R14.0) Active confirmed Problem 89570762 Abdominal pain, epigastric (R10.13) Active confirmed Problem 581846175 Gastroesophageal reflux disease without esophagitis (K21.9) Active confirmed Problem 09875357 Constipation, unspecified constipation type (K59.00) Active confirmed Encounters Encounter Location Date Provider Diagnosis [facility] [address] [facility] [address] [place] [address] 08/30/2024 Pete Henson Plan Of Treatment Future Test Test Name Order Date COLONOSCOPY 05/25/2017 Insurance Providers Payer Name Payer Address Payer Phone Subscriber Number Group Number Insured Name Patient Relationship to Insured Coverage Start Date Coverage End Date [facility] Medicare Adv (PPO) [address] [address] [place] [address] [phone] [id number] LEO HACKETT Self - patient is the insured [facility] [address] [place] [address] [phone] [id number] LEO HACKETT Self - patient is the insured Medical (General) History Medical History History ICD Code Denies HI,DM,CVA,renal disease Glaucoma Hypertension Hypercholesterolemia Seasonal allergies-gets injections GERD-EGD 04/2007--small HH, otherwise negative; he had similar findings on his endoscopy in 1998 as well Arthritis Screening colonoscopy and 06/2017--negative except for diverticulosis and internal hemoorrhoids, 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
--- OUTSIDE RECORDS SUMMARY | 2024-11-19 09:55 | XMS_ITS ---
Author Organization [facility] Address [address] [place] [address] Care Team Providers Care Banking Specialist Name Role Phone Jeannette Zelaya Primary Care Provider Unavailab Pete Anders [phone] REASON FOR VISIT refill esomeoprazole Medications Medication SIG (Take, Route, Frequency, Duration) Notes Start Date End Date Status Esomeprazole Magnesium 40 MG TAKE 1 CAPSULE BY MOUTH EVERY DAY Orally Once a day for 90 days Active Encounters Encounter Location Date Provider Diagnosis [facility] [address] [place] [address] 08/30/2024 Pete Henson Plan Of Treatment Medication Medication Name Sig Start Date Stop Date Notes Esomeprazole Magnesium 40 MG TAKE 1 CAPS ULE BY MOUTH EVERY DAY Orally Once a day for 90 days Progress Notes * LEO HACKETTDOB:1955 (69 yo M)Acc No.[id number]:08/30/2024 Patient:?LEO HACKETT :1955???Age:69 Y???Sex:Male Address:[address] [place] [address] * Refills? Refill Esomeprazole Magnesium Capsule Delayed Release, 40 MG, Orally, 90 Capsule, TAKE 1 CAPSULE BY MOUTH EVERY DAY, Once a day, 90 days, Refills=3 * true * Date:? Generated for Seda alexander/Mary/eTransmitting on:?11/19/2024 09:54 AM EDT
[2024-11-19 10:14] LABS: Estimated Average Glucose 117 mg/dL; Hemoglobin A1C 162.2303 umol/L; Hemoglobin A1c % 5.7 % (<6.0); Total Hemoglobin (HGBA1C) 4126.4514 umol/L
[2024-11-19 10:22] LABS: Alanine Aminotransferase 37 U/L (0-40); Albumin Level 4.2 g/dL (3.5-5.0); Alkaline Phosphatase 68 U/L (39-117); Anion Gap 9 (12-20); Aspartate Amino Transferase 28 U/L (5-37); Blood Urea Nitrogen 17 mg/dL (9-16); Calcium 9.2 mg/dL (8.4-10.2); Carbon Dioxide 30 mmol/L (22-29); Chloride 107 mmol/L (96-108); Cholesterol 135 mg/dL (<200); Estimated Glomerular Filt Rate > 60; Glucose Random 104 mg/dL (60-115); HDL Cholesterol 43 mg/dL (>40); LDL Cholesterol Calculated 79 mg/dL (<100); Potassium 4.1 mmol/L (3.3-5.1); Sodium 142 mmol/L (135-145); Total Protein 7.1 g/dL (6.5-8.0); Triglycerides 68 mg/dL (<150)
== END 2024-11-19 09:13 | disposition home or self-care (01) ==
LOC: HO.LAB 09:12
PROVIDERS: PCP Internal Medicine; Visit Provider Internal Medicine
DX: E11.9 Type 2 diabetes mellitus without complications (principal); E78.00 Pure hypercholesterolemia, unspecified; I10 Essential (primary) hypertension; R80.8 Other proteinuria
CPT/HCPCS: 36415; 80053; 80061; 83036

== ENCOUNTER 2025-02-20 10:20 | Outpatient (REF) | payer OTHER, MEDICAID, SELFPAY ==
--- OUTSIDE RECORDS SUMMARY | 2025-02-20 11:08 | XMS_ITS | Clinical Summary ---
Author Organization [facility] Address [address] [facility] [address] Phone Care Team Providers Care Director Of Manufacturing Name Role Phone Jeannette Zelaya MD Primary [...] Cancer Screening: Sigmoidoscopy 02/14/2005 Influenza Vaccine (#1) 2025 Hepatitis B Vaccine Aged Out No longe r eligible based on patient's age to complete this topic Insurance [facility] ([id number]) SATINDER CURTIS [id number] [facility] ([id number]) [place] [id number] Care Teams Director Of Manufacturing Relationship Specialty Start Date End Date Jeannette Zelaya MD [address] [facility] 216 [place], [place] PCP - General 08/10/20
--- OUTSIDE RECORDS SUMMARY | 2025-02-20 11:08 | XMS_ITS | Patient Health Record ---
Author Organization [facility] Address [address] [place] [address] Care Team Providers Care Boilermaker Pipe Fitter Name Role Phone Jeannette Zelaya Primary Care Provider Pete Deshpande Unavailable [phone] Allergies Allergen (clinical drug ingredient) Drug/Non Drug [...] Problem Status W/U Status Risk Notes Problem 620201296 Encounter for screening for malignant neoplasm of colon (Z12.11) Active confirmed Problem 026849908 Abdominal bloati ng (R14.0) Active confirmed Problem 19031866 Abdominal pain, epigastric (R10.13) Active confirmed Problem 037411194 Gastroesophageal reflux disease without esophagitis (K21.9) Active confirmed Problem 41580642 Constipation, unspecified constipation type (K59.00) Active confirmed Encounters Encounter Location Date Provider Diagnosis [facility] [address] [facility] [address] [place] [address] 08/30/2024 Pete Henson Plan Of Treatment Future Test Test Name Order Date COLONOSCOPY 05/25/2017 Insurance Providers Payer Name Payer Address Payer Phone Subscriber Number Group Number Insured Name Patient Relationship to Insured Coverage Start Date Coverage End Date [facility] Medicare Adv (PPO) [address] [address] [place] [address] [id number] LEO HACKETT Self - patient is the insured MEDICAID OF [facility] [address] [place] [address] [id number] LEO HACKETT Self - patient is the insured Medical (General) History Medical History History ICD Code Denies [place],DM,CVA,renal disease Glaucoma Hypertension Hypercholesterolemia Seasonal allergies-gets injections [...]
[2025-02-20 11:09] LABS: Anion Gap 12 (12-20); Blood Urea Nitrogen 16 mg/dL (9-16); Calcium 9.1 mg/dL (8.4-10.2); Carbon Dioxide 29 mmol/L (22-29); Chloride 106 mmol/L (96-108); Estimated Glomerular Filt Rate > 60; Potassium 3.7 mmol/L (3.3-5.1); Sodium 143 mmol/L (135-145)
[2025-02-20 11:24] LABS: Appearance Urine Clear; Glucose Urine UA Negative (Negative); PH 7.0 (5.0-9.0); Specific Gravity - Urine 1.015 (1.005-1.025); UMIC TRIGGER UA YES
[2025-02-20 12:05] LABS: Total Protein Urine Random 22 mg/dL (<12)
== END 2025-02-20 10:21 | disposition home or self-care (01) ==
LOC: HO.LAB 10:20
PROVIDERS: PCP Internal Medicine; Visit Provider Internal Medicine Hypertension Specialist
DX: N28.1 Cyst of kidney, acquired (principal)
CPT/HCPCS: 36415; 80048; 81001; 82570; 84156

== ENCOUNTER 2025-02-24 10:15 | Outpatient (AMB) | payer OTHER, MEDICAID, SELFPAY ==
[2025-02-24 10:20] VITALS: BP 112/62; PULSE 77; O2SAT 96; BMI 24.8
--- NOTE | 2025-02-24 10:20 | HO.NEPHOV_ITS ---
Vital Signs 02/24/25 10:20 Height 6 ft Weight 183 lb BMI 24.8 BP 112/62 Blood Pressure Location Rt brachial Position Sitting Pulse 77 Pulse Source Pulse Oximeter Pulse Oximetry (%) 96 Oxygen Delivery Method Room Air Intake Visit Reasons: Renal cyst-LVM Motion Picture Commentator Required: No Accompanied by: Spouse Allergies aspirin Allergy (Unknown, Verified 02/24/25 10:22) Unknown penicillin V Allergy (Unknown, Verified 02/24/25 10:22) Unknown spironolactone (Aldactone) Allergy (Unknown, Verified 02/24/25 10:22) Unknown Medication List - Last Reconciled 02/24/25 by Phoenix Charles MD albuterol sulfate 90 mcg/actuation 0 mcg inhalation atorvastatin 80 mg PO DAILY celecoxib (Celebrex) 200 mg PO DAILY cetirizine 10 mg PO DAILY diclofenac sodium 1% 4 grams topical QID esomeprazole magnesium 40 mg PO DAILY fluoxetine 40 mg PO QAM fluticasone propionate 50 mcg/actuation 1 spray intranasal DAILY lorazepam 1 mg PO BID PRN losartan 25 mg PO DAILY meclizine 25 mg PO BID PRN metoprolol succinate ER 100 mg PO DAILY omeprazole 40 mg PO DAILY zolpidem 10 mg PO BEDTIME HPI Comments Details: Alondra is a pleasant 70-year-old man with a history of diabetes mellitus in the past. He was prescribed metformin but however with the diet and exercise and some weight loss he has been staying away from anti diabetic medications. Blood sugar has been well controlled. He did have microalbuminuria in the past. He is here for annual follow-up. He was accompanied by his . No specific complaints today. 02/24/25 Has been having vertigo. Seen by Amador [facility] Medical History BPH associated with nocturia Renal cyst Renal stones Surgical History History of hand surgery Hx of shoulder surgery Family History Father No problems noted. Mother No problems noted. Physical Exam Vital Signs: Last Vital Signs Pulse 77 02/24/25 10:20 BP 112/62 02/24/25 10:20 Pulse Ox 96 02/24/25 10:20 Oxygen Delivery Method Room Air 02/24/25 10:20 BMI result Body Mass Index 24.8 Comfortable Neck supple no JVD. Lungs entry equal no rales. Heart S1-S2 heard no gallop or rub. Abdomen soft nontender. Neuro alert awake oriented. No asterixis. Extremities no edema. Results Reviewed Nephrology Results: Sodium, (135-145) 143 mmol/L 02/20/25 Potassium, (3.3-5.1) 3.7 mmol/L 02/20/25 Chloride, (96-108) 106 mmol/L 02/20/25 Carbon Dioxide, (22-29) 29 mmol/L 02/20/25 BUN, (9-16) 16 mg/dL 02/20/25 Creatinine, (0.5-1.4) 0.86 mg/dL 02/20/25 Calcium, (8.4-10.2) 9.1 mg/dL 02/20/25 Urine Protein, (Neg-Trace) Trace mg/dL 02/20/25 Urine Creatinine 97.44 mg/dL 02/20/25 Renal US 10/31/22 Assessment & Plan Assessment & Plan (1) Renal cyst: Code(s): N28.1 - Cyst of kidney, acquired Category: Medical Plan Chelsea has a history of microalbuminuria. At present blood pressure is well controlled. Blood sugars have been well controlled. Continue with losartan for renal protection. Monitor urine protein excretion. Encouraged him to continue to stay on low-sodium diet and keep monitoring blood sugars at home. I have not made any changes today. I will be happy to follow him along with you as needed Orders: Orders Total Protein Urine Random 6 Months N28.1 - Cyst of kidney, acquired UA and rflx microscopic 6 Months N28.1 - Cyst of kidney, acquired Basic Metabolic Panel 6 Months N28.1 - Cyst of kidney, acquired Creatinine Urine 6 Months N28.1 - Cyst of kidney, acquired Coding Level of Care Code Est Pt Level 4 (44583) Diagnoses Renal cyst N28.1
--- OUTSIDE RECORDS SUMMARY | 2025-02-24 11:19 | XMS_ITS | Patient Health Record ---
Author Organization [facility] Address [address] [place] [address] Care Team Providers Care Body Corporate Manager Name Role Phone Jeannette Zelaya Primary Care Provider Pete Deshpande Unavailable [phone] Allergies Allergen (clinical drug ingredient) Drug/Non Drug [...] Problem Status W/U Status Risk Notes Problem 540366538 Encounter for screening for malignant neoplasm of colon (Z12.11) Active confirmed Problem 473110521 Abdominal bloati ng (R14.0) Active confirmed Problem 59120759 Abdominal pain, epigastric (R10.13) Active confirmed Problem 258341960 Gastroesophageal reflux disease without esophagitis (K21.9) Active confirmed Problem 10910479 Constipation, unspecified constipation type (K59.00) Active confirmed Encounters Encounter Location Date Provider Diagnosis [facility] [address] [facility] [address] [place] [address] 08/30/2024 Pete Henson Plan Of Treatment Future Test Test Name Order Date COLONOSCOPY 05/25/2017 Insurance Providers Payer Name Payer Address Payer Phone Subscriber Number Group Number Insured Name Patient Relationship to Insured Coverage Start Date Coverage End Date [facility] Medicare Adv (PPO) [address] [address] [place] [address] [phone] [id number] LEO HACKETT Self - patient is the insured MEDICAID OF [facility] [address] [place] [address] [id number] LEO HACKETT Self - patient is the insured Medical (General) History Medical History History ICD Code Denies [place],DM,CVA,renal disease Glaucoma Hypertension Hypercholesterolemia Seasonal allergies-gets injections [...]
--- OUTSIDE RECORDS SUMMARY | 2025-02-24 11:19 | XMS_ITS | Clinical Summary ---
Author Organization [facility] Address [address] [facility] [address] Phone Care Team Providers Care Linderman Operator Name Role Phone Jeannette Zelaya MD Primary [...] patient's age to complete this topic Insurance [facility] ([id number]) SATINDER CURTIS [id number] [facility] ([id number]) [place] CUR[place] [id number] Care Teams Linderman Operator Relationship Specialty Start Date End Date Jeannette Zelaya MD [address] [facility] [address] [place], [place] PCP - General 08/10/20
== END 2025-02-24 10:33 | disposition home or self-care (01) ==
LOC: HO.HKA 10:16
PROVIDERS: PCP Internal Medicine; Visit Provider Internal Medicine Hypertension Specialist
DX: N28.1 Cyst of kidney, acquired (principal)
CPT/HCPCS: 99214

== ENCOUNTER 2025-02-28 09:39 | Outpatient (REF) | payer MEDICARE, OTHER, SELFPAY ==
--- OUTSIDE RECORDS SUMMARY | 2025-02-28 09:47 | XMS_ITS | Patient Health Record ---
Author Organization [facility] Address [address] [place] [address] Care Team Providers Care Associate Director Name Role Phone Jeannette Zelaya Primary Care Provider Pete Deshpande Unavailable [phone] Allergies Allergen (clinical drug ingredient) Drug/Non Drug [...] Problem Status W/U Status Risk Notes Problem 771959219 Encounter for screening for malignant neoplasm of colon (Z12.11) Active confirmed Problem 342380848 Abdominal bloati ng (R14.0) Active confirmed Problem 92094332 Abdominal pain, epigastric (R10.13) Active confirmed Problem 086301170 Gastroesophageal reflux disease without esophagitis (K21.9) Active confirmed Problem 35049624 Constipation, unspecified constipation type (K59.00) Active confirmed Encounters Encounter Location Date Provider Diagnosis [facility] [address] [facility] [address] [place] [address] 08/30/2024 Pete Henson Plan Of Treatment Future Test Test Name Order Date COLONOSCOPY 05/25/2017 Insurance Providers Payer Name Payer Address Payer Phone Subscriber Number Group Number Insured Name Patient Relationship to Insured Coverage Start Date Coverage End Date [facility] Medicare Adv (PPO) [address] [address] [place] [address] [id number] LEO HACKETT Self - patient is the insured MEDICAID OF [facility] [address] [place] [address] [phone] [id number] LEO HACKETT Self - patient is the insured Medical (General) History Medical History History ICD Code Denies [place],DM,CVA,renal disease Glaucoma Hypertension Hypercholesterolemia Seasonal allergies-gets injections [...]
--- OUTSIDE RECORDS SUMMARY | 2025-02-28 09:47 | XMS_ITS | Clinical Summary ---
Author Organization [facility] Address [address] [facility] [address] [address] [place] [address] Phone Care Team Providers Care Checkout Operator Name Role Phone Jeannette Zelaya MD [...] patient's age to complete this topic Insurance [facility] ([id number]) SATINDER CURTIS [id number] [facility] ([id number]) [place] CUR[place] [id number] Care Teams Checkout Operator Relationship Specialty Start Date End Date Jeannette Zelaya MD [address] [facility] 216 [place], [place] PCP - General 08/10/20
[2025-02-28 10:15] LABS: Hemoglobin A1C 164.1310 umol/L; Total Hemoglobin (HGBA1C) 4101.5949 umol/L
[2025-02-28 10:44] LABS: Alanine Aminotransferase 39 U/L (0-40); Albumin Level 4.5 g/dL (3.5-5.0); Alkaline Phosphatase 71 U/L (39-117); Anion Gap 11 (12-20); Aspartate Amino Transferase 32 U/L (5-37); Blood Urea Nitrogen 17 mg/dL (9-16); Calcium 9.2 mg/dL (8.4-10.2); Carbon Dioxide 30 mmol/L (22-29); Chloride 107 mmol/L (96-108); Cholesterol 146 mg/dL (<200); Estimated Glomerular Filt Rate > 60; HDL Cholesterol 46 mg/dL (>40); Potassium 4.5 mmol/L (3.3-5.1); Sodium 143 mmol/L (135-145); Total Protein 7.2 g/dL (6.5-8.0); Triglycerides 52 mg/dL (<150)
[2025-02-28 11:38] LABS: Microalbum/Creatinine Ratio Ur 61.8 ug/mg cr (<30)
== END 2025-02-28 09:40 | disposition home or self-care (01) ==
LOC: HO.LAB 09:39
PROVIDERS: PCP Internal Medicine; Visit Provider Internal Medicine
DX: N40.0 Benign prostatic hyperplasia without lower urinary tract symptoms (principal); R80.8 Other proteinuria; E11.9 Type 2 diabetes mellitus without complications; E78.00 Pure hypercholesterolemia, unspecified; J45.909 Unspecified asthma, uncomplicated
CPT/HCPCS: 36415; 80053; 80061; 82043; 82570; 83036; 84153

== ENCOUNTER 2025-03-20 10:05 | Outpatient (AMB) | payer MEDICARE, MEDICAID, SELFPAY ==
--- OUTSIDE RECORDS SUMMARY | 2025-03-20 11:31 | XMS_ITS | Clinical Summary ---
Author Organization [facility] Address [address] [facility] [address] Phone Care Team Providers Care Anvil Seating Press Operator Name Role Phone Jeannette Zelaya MD [...] patient's age to complete this topic Insurance [facility] ([id number]) SATINDER CURTIS [id number] [facility] ([id number]) [place] CUR[place] [id number] Care Teams Anvil Seating Press Operator Relationship Specialty Start Date End Date Jeannette Zelaya MD [address] [facility] [address] [place], [place] PCP - General 08/10/20
--- OUTSIDE RECORDS SUMMARY | 2025-03-20 11:31 | XMS_ITS | Patient Health Record ---
Author Organization [facility] Address [address] [place] [address] Care Team Providers Care Film Splicer Name Role Phone Jeannette Zelaya Primary Care Provider Pete Deshpande Unavailable [phone] Allergies Allergen (clinical drug ingredient) Drug/Non Drug [...] Problem Status W/U Status Risk Notes Problem 539408097 Encounter for screening for malignant neoplasm of colon (Z12.11) Active confirmed Problem 292763080 Abdominal bloati ng (R14.0) Active confirmed Problem 85472822 Abdominal pain, epigastric (R10.13) Active confirmed Problem 480560230 Gastroesophageal reflux disease without esophagitis (K21.9) Active confirmed Problem 87111024 Constipation, unspecified constipation type (K59.00) Active confirmed Encounters Encounter Location Date Provider Diagnosis [facility] [address] [facility] [address] [place] [address] 08/30/2024 Pete Henson Plan Of Treatment Future Test Test Name Order Date COLONOSCOPY 05/25/2017 Insurance Providers Payer Name Payer Address Payer Phone Subscriber Number Group Number Insured Name Patient Relationship to Insured Coverage Start Date Coverage End Date [facility] Medicare Adv (PPO) [address] [address] [place] [address] [id number] LEO HACKETT Self - patient is the insured MEDICAID OF [facility] [address] [place] [address] [phone] [id number] LEO HACKETT Self - patient is the insured Medical (General) History Medical History History ICD Code Denies [place],DM,CVA,renal disease Glaucoma Hypertension Hypercholesterolemia Seasonal allergies-gets injections [...]
== END 2025-03-20 13:23 | disposition home or self-care (01) ==
LOC: HO.HMGAL 10:05
PROVIDERS: PCP Internal Medicine; Visit Provider Registered Nurse Emergency
DX: J30.89 Other allergic rhinitis (principal)
CPT/HCPCS: 95117; 95165

== ENCOUNTER 2025-04-02 10:45 | Outpatient (AMB) | payer MEDICARE, MEDICAID, SELFPAY ==
--- OUTSIDE RECORDS SUMMARY | 2025-04-02 12:26 | XMS_ITS | Clinical Summary ---
Author Organization [facility] Address [address] [facility] [place] [address] Phone Care Team Providers Care Human Resource Intern Name Role Phone Jeannette Zelaya MD Primary [...] patient's age to complete this topic Insurance [facility] ([id number]) SATINDER CURTIS [id number] [facility] ([id number]) [place] CURT[place] [id number] Care Teams Human Resource Intern Relationship Specialty Start Date End Date Jeannette Zelaya MD 12[address] [facility] 216 [place], [place] PCP - General 08/10/20
== END 2025-04-02 10:46 | disposition home or self-care (01) ==
LOC: HO.HMGAL 10:45
PROVIDERS: PCP Internal Medicine; Visit Provider Registered Nurse Emergency
DX: J30.89 Other allergic rhinitis (principal)
CPT/HCPCS: 95117; 95165

== ENCOUNTER 2025-04-16 10:19 | Outpatient (AMB) | payer MEDICARE, MEDICAID, SELFPAY ==
--- OUTSIDE RECORDS SUMMARY | 2025-04-16 12:33 | XMS_ITS | Clinical Summary ---
Author Organization [facility] Address [address] [facility] [address] [facility] [place] [address] Phone Care Team Providers Care Machine Preservative Filler Name Role Phone Jeannette Zelaya MD Primary [...] patient's age to complete this topic Insurance [facility] ([id number]) SATINDER CURTIS [id number] [facility] ([id number]) SATINDER CURTIS [id number] Care Teams Machine Preservative Filler Relationship Specialty Start Date End Date Jeannette Zelaya MD 12[address] [facility] 216 [place], [place] PCP - General 08/10/20
--- OUTSIDE RECORDS SUMMARY | 2025-04-16 12:33 | XMS_ITS | Patient Health Record ---
Author Organization [facility] Address [address] [place] [address] Care Team Providers Care Claims Manager Name Role Phone Jeannette Zelaya Primary Care Provider Pete Deshpande Unavailable [phone] Allergies Allergen (clinical drug ingredient) Drug/Non Drug [...] Problem Status W/U Status Risk Notes Problem 722338815 Encounter for screening for malignant neoplasm of colon (Z12.11) Active confirmed Problem 868069927 Abdominal bloati ng (R14.0) Active confirmed Problem 58557363 Abdominal pain, epigastric (R10.13) Active confirmed Problem 181228250 Gastroesophageal reflux disease without esophagitis (K21.9) Active confirmed Problem 83856689 Constipation, unspecified constipation type (K59.00) Active confirmed Encounters Encounter Location Date Provider Diagnosis [facility] [address] [facility] [address] [place] [address] 08/30/2024 Pete Henson Plan Of Treatment Future Test Test Name Order Date COLONOSCOPY 05/25/2017 Insurance Providers Payer Name Payer Address Payer Phone Subscriber Number Group Number Insured Name Patient Relationship to Insured Coverage Start Date Coverage End Date [facility] Medicare Adv (PPO) [address] [address] [place] [address] [id number] LEO HACKETT Self - patient is the insured MEDICAID OF [facility] [address] [place] [address] [id number] LEO HACKETT Self - patient is the insured Medical (General) History Medical History History ICD Code Denies [place],DM,CVA,renal disease Glaucoma Hypertension Hypercholesterolemia Seasonal allergies-gets injections [...]
== END 2025-04-16 10:43 | disposition home or self-care (01) ==
LOC: HO.HMGAL 10:19
PROVIDERS: PCP Internal Medicine; Visit Provider Registered Nurse Emergency
DX: J30.89 Other allergic rhinitis (principal)
CPT/HCPCS: 95117; 95165

== ENCOUNTER 2025-04-24 11:00 | Outpatient (RCR) | payer MEDICARE, OTHER, SELFPAY ==
[2025-03-20 10:50] VITALS: BP 125/62; PULSE 63
--- NOTE | 2025-03-20 17:42 | MHC.PT.EP ---
[facility] Office [place] Office [place] Office [address] Keegan Shaw [address] [phone] F: [phone] F: [phone] F: [phone] F: [phone] Physical Therapy Plan of Care Date of Evaluation: 03/20/25 Date of Surgery: Diagnosis: Vertigo left side Assessment: Pt is a pleasant and motivated 70yo M who presents to PT with dizziness. Pts present for PT alma rosa. Pt reports onset of dizziness in January. He reports initially dizziness with nausea and vomiting but reports that has improved. He has history of vertigo on L side. Upon assessment, he tested negative for B posterior and horizontal canal BPPV. Upon balance assessment, he had dizziness and nausea with eyes closed on the airex with increase in postural sway. Will continue to assess for BPPV however his signs and symptoms may be consistent with vestibular hypofunction. He is recommended to be seen 2x/week for 4 weeks and will be reassessed at that time Frequency and Duration: The patient will be seen 2x/week for 4 weeks Short Term Goals: Pt will be I with HEP to promote self management of symptoms Pt will improve turn his head side to side without dizziness or instability Longterm Goals: Pt will demonstrate ability to get in/out of bed without dizziness and instability Pt will demonstrate ability to bend forward to fish bait picker object safely without dizziness or instability Pt will ambulate with horizontal head turns independently without dizziness or instability Treatment Plan: Modalities to reduce pain, spasms and effusion. Manual therapy to restore motion and function. Therapeutic exercise to improve strength and flexibility. Neuromuscular re-education for posture and balance. Therapeutic activities to return to functional activities of daily living. Electronically signed by: Rachel Tinajero, PT, DPT Please sign and return to therapist. Thank you for your referral.
--- NOTE | 2025-06-09 08:36 | MHC.PT.DC ---
[facility] [place] [facility] [place] [facility] [place] Office [address] Keegan Shaw [address] [phone] F: [phone] F: [phone] F: [phone] F: [phone] Physical Therapy Discharge Report Diagnosis: Vertigo left side Date of Surgery: Date of Evaluation: 03/20/25 Date of Discharge: 06/09/25 Treatments to Date: 4 Cancellations to Date: 1 No Shows to Date: Discharge Status: Improved Function Independent with HEP Discharge Summary: Pt was seen for skilled PT from 03/20/25-04/24/25. His last attended and scheduled appointment was 04/24/25. His chart was left open for 30 days incase he had recurrence of symptoms. He is being D/C from skilled PT as he has not attended or called to schedule in > 30 days. Please see assessment from last PT treatment note below: Pt reports he has not had any dizziness other than performing his HEP. He reports increased neck pain after last session. Continued balance activities and pt was able to perform airex and rockerboard activities with mild increase in postural sway however no LOB. He ambulates independently with steady gait. Held exercises involving head movement due to neck pain. Gentle STM performed with muscular restrictions throughout B upper trap region. Ended with MHP to promote muscle relaxation. Manual therapy and MHP performed to prevent muscular restrictions as that could contribute to cervicogenic dizziness. I discussed with pt and his that if the pt only experiences dizziness with HEP and if it is causing pain then to hold on exercises. I offered them to book 1 more appointment, pt politely deferred. I discussed with pt and his that I will leave his PT chart open for 30 days and if he has any recurrence of symptoms he can call and schedule, they verbalized understanding . Electronically signed by: Rachel Vallejo, PT, DPT Please sign and return to therapist. Thank you for your referral.
== END 2025-06-09 08:36 | disposition home or self-care (01) ==
LOC: HO.PT 11:00
PROVIDERS: PCP Internal Medicine; Visit Provider Internal Medicine
DX: H81.12 Benign paroxysmal vertigo, left ear (principal)
CPT/HCPCS: 97112; 97140; 97161

== ENCOUNTER 2025-04-30 10:33 | Outpatient (AMB) | payer MEDICARE, SELFPAY ==
--- NOTE | 2025-04-30 10:50 | MHC.OFFVIS ---
Vital Signs 04/30/25 10:59 Height 6 ft Weight 188 lb BMI 25.5 BP 132/80 Blood Pressure Location Rt brachial Position Sitting Pulse 66 Pulse Source Pulse Oximeter Pulse Oximetry (%) 96 Oxygen Delivery Method Room Air Intake Visit Reasons: Follow Up Intake Note: Follow up Obstructive sleep apnea Shipping Inspector Required: No Accompanied by: Spouse Allergies aspirin Allergy (Unknown, Verified 04/30/25 10:51) Unknown penicillin V Allergy (Unknown, Verified 04/30/25 10:51) Unknown spironolactone (Aldactone) Allergy (Unknown, Verified 04/30/25 10:51) Unknown HPI Comments Details: 70y/o male calls for follow up. Sleep study was done on Results- AHI 10 O2 renae 86% He is using his CPAP regularly . Cuaszrps-3-21 Compliance report- 100% 01/22-04/24 usage hrs-8hrs 12 min AHI-1.9 Sleeps better with CPAP and daytime functioning has improved. Leg movements are better. [facility] Medical History BPH associated with nocturia Renal cyst Renal stones Surgical History History of hand surgery Hx of shoulder surgery Family History Father No problems noted. Mother No problems noted. Physical Exam Vital Signs: Last Vital Signs Pulse 66 04/30/25 10:59 BP 132/80 04/30/25 10:59 Pulse Ox 96 04/30/25 10:59 Oxygen Delivery Method Room Air 04/30/25 10:59 BMI result Body Mass Index 25.5 Alert Awake oriented to time, place and person Mood - stable Speech- normal Cognition- intact Assessment & Plan Assessment & Plan (1) Obstructive sleep apnea: Code(s): G47.33 - Obstructive sleep apnea (adult) (pediatric) Category: Medical Plan: Continue AutoPAP 5-15 cm of water. compliance stressed will follow up to ensure compliance and therapy response Prescription for new CPAP sent to [facility] Coding Level of Care Code Est Pt Level 4 (84792) Diagnoses Obstructive sleep apnea G47.33
[2025-04-30 10:59] VITALS: BP 132/80; PULSE 66; O2SAT 96; BMI 25.5
--- OUTSIDE RECORDS SUMMARY | 2025-04-30 12:10 | XMS_ITS | Patient Health Record ---
Author Organization [facility] Address [address] [place] [address] Care Team Providers Care Dimensional Inspector Name Role Phone Jeannette Zelaya Primary Care Provider Pete Deshpande Unavailable [phone] Allergies Allergen (clinical drug ingredient) Drug/Non Drug [...] Problem Status W/U Status Risk Notes Problem 151104221 Encounter for screening for malignant neoplasm of colon (Z12.11) Active confirmed Problem 389811773 Abdominal bloati ng (R14.0) Active confirmed Problem 36043674 Abdominal pain, epigastric (R10.13) Active confirmed Problem 656039637 Gastroesophageal reflux disease without esophagitis (K21.9) Active confirmed Problem 51916064 Constipation, unspecified constipation type (K59.00) Active confirmed Encounters Encounter Location Date Provider Diagnosis [facility] [address] [facility] [address] [place] [address] 08/30/2024 Pete Henson Plan Of Treatment Future Test Test Name Order Date COLONOSCOPY 05/25/2017 Insurance Providers Payer Name Payer Address Payer Phone Subscriber Number Group Number Insured Name Patient Relationship to Insured Coverage Start Date Coverage End Date [facility] Medicare Adv (PPO) [address] [address] [place] [address] [id number] LEO HACKETT Self - patient is the insured MEDICAID OF [facility] [address] [place] [address] [id number] LEO HACKETT Self - patient is the insured Medical (General) History Medical History History ICD Code Denies [place],DM,CVA,renal disease Glaucoma Hypertension Hypercholesterolemia Seasonal allergies-gets injections [...]
--- OUTSIDE RECORDS SUMMARY | 2025-04-30 12:10 | XMS_ITS | Clinical Summary ---
Author Organization [facility] Address [address] [place] [address] Phone Care Team Providers Care Roll Edge Machine Operator Name Role Phone Jeannette Zelaya MD [...] patient's age to complete this topic Insurance [facility] ([id number]) SATINDER CURTIS [id number] [facility] ([id number]) [place] CURT[place] [id number] Care Teams Roll Edge Machine Operator Relationship Specialty Start Date End Date Jeannette Zelaya MD [address] [facility] [address] [place], [place] PCP - General 08/10/20
== END 2025-04-30 11:33 | disposition home or self-care (01) ==
PROVIDERS: PCP Internal Medicine; Visit Provider Psychiatry & Neurology Neurology
DX: G47.33 Obstructive sleep apnea (adult) (pediatric) (principal)
CPT/HCPCS: 99214

== ENCOUNTER → 2025-04-30 10:33 | Outpatient (BNVA) | payer MEDICARE, OTHER, SELFPAY | PROVIDERS: PCP Internal Medicine; Visit Provider Psychiatry & Neurology Neurology | DX: G47.33 Obstructive sleep apnea (adult) (pediatric) (principal); Z99.89 Dependence on other enabling machines and devices | CPT/HCPCS: 99212 ==

== ENCOUNTER 2025-05-05 11:57 | Outpatient (AMB) | payer MEDICARE, MEDICAID, SELFPAY ==
--- OUTSIDE RECORDS SUMMARY | 2025-05-05 14:28 | XMS_ITS | Clinical Summary ---
Author Organization [facility] [place] Address [address] [place] [facility] [address] Phone Care Team Providers Care Honing Job Setter Name Role Phone Jeannette Zelaya MD Primary [...] patient's age to complete this topic Insurance [facility] ([id number]) [place]IND[place] CURT[place] [id number] [facility] ([id number]) [place] CUR[place] [id number] Care Teams Honing Job Setter Relationship Specialty Start Date End Date Jeannette Zelaya MD 12[address] [facility] 216 [place], [place] PCP - General 08/10/20
--- OUTSIDE RECORDS SUMMARY | 2025-05-05 14:28 | XMS_ITS | Patient Health Record ---
Author Organization [facility] Address [address] [place] [address] Care Team Providers Care Aqueduct And Reservoir Keeper Name Role Phone Jeannette Zelaya Primary Care Provider Pete Deshpande Unavailable [phone] Allergies Allergen (clinical drug ingredient) Drug/Non Drug [...] Problem Status W/U Status Risk Notes Problem 360759376 Encounter for screening for malignant neoplasm of colon (Z12.11) Active confirmed Problem 975794505 Abdominal bloati ng (R14.0) Active confirmed Problem 00580954 Abdominal pain, epigastric (R10.13) Active confirmed Problem 047098280 Gastroesophageal reflux disease without esophagitis (K21.9) Active confirmed Problem 39150875 Constipation, unspecified constipation type (K59.00) Active confirmed Encounters Encounter Location Date Provider Diagnosis [facility] [address] [place] [address] 08/30/2024 Pete Henson Plan Of Treatment Future Test Test Name Order Date COLONOSCOPY 05/25/2017 Insurance Providers Payer Name Payer Address Payer Phone Subscriber Number Group Number Insured Name Patient Relationship to Insured Coverage Start Date Coverage End Date [facility] Medicare Adv (PPO) [address] [address] [place] [address] [phone] [id number] LEO HACKETT Self - patient is the insured MEDICAID OF [facility] [address] [place] [address] [id number] LEO HACKETT Self - patient is the insured Medical (General) History Medical History History ICD Code Denies [place],DM,CVA,renal disease Glaucoma Hypertension Hypercholesterolemia Seasonal allergies-gets injections [...]
== END 2025-05-05 12:04 | disposition home or self-care (01) ==
LOC: HO.HMGAL 11:57
PROVIDERS: PCP Internal Medicine; Visit Provider Registered Nurse Emergency
DX: J30.89 Other allergic rhinitis (principal)
CPT/HCPCS: 95117; 95165

== ENCOUNTER 2025-05-21 11:00 | Outpatient (AMB) | payer MEDICARE, MEDICAID, SELFPAY ==
--- OUTSIDE RECORDS SUMMARY | 2025-05-21 14:43 | XMS_ITS | Patient Health Record ---
Author Organization [facility] Address [address] [place] [address] Care Team Providers Care Research Chief Engineer Name Role Phone Jeannette Zelaya Primary Care Provider Pete Deshpande Unavailable [phone] Allergies Allergen (clinical drug ingredient) Drug/Non Drug [...] BY MOUTH EVERY DAY Orally Once a day; Duration: 90 days Active Pantoprazole Sodium 40 MG 1 tablet Orall y Once a day; Duration: 90 days 09/17/2023 Active Esomeprazole Magnesium 40 1 capsule Oral ly Once a day; Duration: 30 Active Ambien 10 MG 1 tablet at bedtime as needed Orally Once a day Active ZyrTEC Active LORazepam 1 MG 1 -1/2tablet as need ed Orally 2 times a day Active Ranitidine HCl 300 MG 1 tablet Orally On ce a day; Duration: 30 day(s) Active FLUoxetine HCl 20 MG [...] Problem Status W/U Status Risk Notes Problem Screening for malignant neoplasm of colon (804328793) Encounter for screening for malignant neoplasm of colon (Z12.11) Active confirmed Problem Abdominal bloating (151417933) Abdominal bloating (R14.0) Active confirmed Problem Epigastric pain (08225187) Abdominal pain, epigastric (R10.13) Active confirmed Problem Gastroesophageal reflux disease without esophagitis (098343132) Gastroesophageal reflux disease without esophagitis (K21.9) Active confirmed Problem Constipation (68922337) Constipation, unspecified constipation type (K59.00) Active confirmed Encounters Encounter Location Date Provider Diagnosis [facility] [address] [place] [address] 08/30/2024 Pete Henson Plan Of Treatment Future Test Test Name Order Date COLONOSCOPY 05/25/2017 Insurance Providers Payer Name Payer Address Payer Phone Subscriber Number Group Number Insured Name Patient Relationship to Insured Coverage Start Date Coverage End Date [facility] Medicare Adv (PPO) [address] [address] [place] [address] [id number] LEO HACKETT Self - patient is the insured MEDICAID OF [employer] [address] [place] [address] [id number] LEO HACKETT Self - patient is the insured Medical (General) History Medical History History ICD Code Denies [place],DM,CVA,renal disease Glaucoma Hypertension Hypercholesterolemia Seasonal allergies-gets injections [...]
== END 2025-05-21 11:01 | disposition home or self-care (01) ==
LOC: HO.HMGAL 11:00
PROVIDERS: PCP Internal Medicine; Visit Provider Registered Nurse Emergency
DX: J30.89 Other allergic rhinitis (principal)
CPT/HCPCS: 95117; 95165

== ENCOUNTER 2025-05-30 09:08 | Outpatient (REF) | payer MEDICARE, MEDICAID, SELFPAY ==
--- OUTSIDE RECORDS SUMMARY | 2025-05-30 10:03 | XMS_ITS | Clinical Summary ---
Author Organization [facility] [place] Address [address] [place] [address] Phone Care Team Providers Care Chiropractic Doctor Name Role Phone Jeannette Zelaya MD Primary [...] patient's age to complete this topic Insurance [facility] ([id number]) SATINDER CURTIS [id number] [facility] ([id number]) [place] CURT[place] [id number] Care Teams Chiropractic Doctor Relationship Specialty Start Date End Date Jeannette Zelaya MD 12[address] [facility] [address] [place], [place] PCP - General 08/10/20
--- OUTSIDE RECORDS SUMMARY | 2025-05-30 10:03 | XMS_ITS | Patient Health Record ---
Author Organization [facility] Address [address] [place] [address] Care Team Providers Care Line Installer Trolley Name Role Phone Jeannette Zelaya Primary Care Provider Pete Deshpande Unavailable [phone] Allergies Allergen (clinical drug ingredient) Drug/Non Drug [...] Problem Screening for malignant neoplasm of colon (656518937) Encounter for screening for malignant neoplasm of colon (Z12.11) Active confirmed Problem Abdominal bloating (582356463) Abdominal bloating (R14.0) Active confirmed Problem Epigastric pain (54735823) Abdominal pain, epigastric (R10.13) Active confirmed Problem Gastroesophageal reflux disease without esophagitis (728339566) Gastroesophageal reflux disease without esophagitis (K21.9) Active confirmed Problem Constipation (23589009) Constipation, unspecified constipation type (K59.00) Active confirmed Encounters Encounter Location Date Provider Diagnosis [facility] [address] [facility] [address] [place] [address] 08/30/2024 Pete Henson Plan Of Treatment Future Test Test Name Order Date COLONOSCOPY 05/25/2017 Insurance Providers Payer Name Payer Address Payer Phone Subscriber Number Group Number Insured Name Patient Relationship to Insured Coverage Start Date Coverage End Date [facility] Medicare Adv (PPO) [address] [address] [place] [address] [id number] LEO HACKETT Self - patient is the insured MEDICAID OF [employer] [address] [place] [address] [id number] LEO HACKETT Self - patient is the insured Medical (General) History Medical History History ICD Code Denies [place],DM,CVA,renal disease Glaucoma Hypertension Hypercholesterolemia Seasonal allergies-gets injections [...]
[2025-05-30 10:11] LABS: Alanine Aminotransferase 32 U/L (0-40); Albumin Level 4.4 g/dL (3.5-5.0); Alkaline Phosphatase 65 U/L (39-117); Anion Gap 11 (12-20); Aspartate Amino Transferase 32 U/L (5-37); Blood Urea Nitrogen 16 mg/dL (9-16); Calcium 9.3 mg/dL (8.4-10.2); Carbon Dioxide 28 mmol/L (22-29); Chloride 108 mmol/L (96-108); Estimated Glomerular Filt Rate > 60; Potassium 4.6 mmol/L (3.3-5.1); Sodium 142 mmol/L (135-145); Total Protein 7.1 g/dL (6.5-8.0)
== END 2025-05-30 09:09 | disposition home or self-care (01) ==
LOC: HO.LAB 09:08
PROVIDERS: PCP Internal Medicine; Visit Provider Internal Medicine
DX: I10 Essential (primary) hypertension (principal); E11.9 Type 2 diabetes mellitus without complications; H81.12 Benign paroxysmal vertigo, left ear; E78.00 Pure hypercholesterolemia, unspecified; R80.8 Other proteinuria
CPT/HCPCS: 36415; 80053; 82306; 83036

== ENCOUNTER 2025-06-04 11:14 | Outpatient (AMB) | payer MEDICARE, MEDICAID, SELFPAY ==
--- OUTSIDE RECORDS SUMMARY | 2025-06-04 13:38 | XMS_ITS | Clinical Summary ---
Author Organization [facility] [place] Address [address] [facility] [address] Phone Care Team Providers Care Solar Electric/Photovoltaic Installer Name Role Phone Jeannette Zelaya MD Primary Care Provider [phone] Allergies Active Allergy Reactions Criticality Noted Date [...] patient's age to complete this topic Insurance [facility] ([id number]) SATINDER CURTIS [id number] [facility] ([id number]) [place] CUR[place] [id number] Care Teams Solar Electric/Photovoltaic Installer Relationship Specialty Start Date End Date Jeannette Zelaya MD 1221 [facility] 216 [place], [place] PCP - General 08/10/20
== END 2025-06-04 11:19 | disposition home or self-care (01) ==
LOC: HO.HMGAL 11:14
PROVIDERS: PCP Internal Medicine; Visit Provider Registered Nurse Emergency
DX: J30.89 Other allergic rhinitis (principal)
CPT/HCPCS: 95117; 95165

== ENCOUNTER 2025-06-18 11:05 | Outpatient (AMB) | payer MEDICARE, MEDICAID, SELFPAY ==
--- OUTSIDE RECORDS SUMMARY | 2025-06-18 21:52 | XMS_ITS | Clinical Summary ---
Author Organization [facility] Address [address] [facility] [address] Phone Care Team Providers Care Transition Advisor Name Role Phone Jeannette Zelaya MD Primary Care Provider [phone] Allergies Active Allergy Reactions Criticality Noted Date [...] patient's age to complete this topic Insurance [facility] ([id number]) SATIND[place] CURT[place] [id number] [facility] ([id number]) [place] CURT[place] [phone] Care Teams Transition Advisor Relationship Specialty Start Date End Date Jeannette Zelaya MD 1221 [facility] 216 [place], [place] PCP - General 08/10/20
--- OUTSIDE RECORDS SUMMARY | 2025-06-18 21:53 | XMS_ITS | Patient Health Record ---
Author Organization [facility] Address [address] [place] [address] Care Team Providers Care Plant Maintenance Worker Name Role Phone Jeannette Zelaya Primary Care Provider Pete Deshpande Unavailable [phone] Allergies Allergen (clinical drug ingredient) Drug/Non Drug Allergy documented on EMR Reaction Allergy Type Onset Date Status Penicillin Unknown Drug Allergy Active Reason For Referral No Information Medications Medication SIG (Take, Route, Frequency, Duration) Notes Start Date End Date Status CeleBREX 200 MG Capsule 1 capsule with f ood Orally Once a day Active Cetirizine HCl 10 MG Tablet 1 tablet Ora lly Once a day Active Metoprolol Succinate ER 100 MG Tablet Extended Release 24 Hour 1 tablet Orally Once a day Active Pantoprazole Sodium 40 MG Tablet Delayed Release 1 tablet Orally Once a day; Duration: 90 days 09/17/2023 Active Esomeprazole Magnesium 40 MG Capsule Delayed Release TAKE 1 CAPSULE BY MOUTH EVERY DAY; Duration: 90 Active Esomeprazole Magnesium 40 Capsule Delayed Release 1 capsule Orally Once a day; Duration: 30 Active Ambien 10 MG Tablet 1 tablet at bedtime as needed Orally Once a day Active ZyrTEC Active LORazepam 1 MG Tablet as ne eded Orally 2 times a day Active Ranitidine HCl 300 MG Tablet 1 tablet Orally Once a day; Duration: 30 day(s) Active FLUoxetine HCl 20 MG Capsule 1 capsule in the morning Orally three times a day Active Fluoxetine 20 mg tablet one tablet orall y once a day Active Atorvastatin Calcium 40 MG Tablet 1 tablet Orally Once a day Active Meclizine HCl 25 MG Tablet Chewable 1 tablet as needed Orally up to 3 times a day as needed Active tylenol 500 mg 1 tab Oral as needed Active Immunizations Vaccine Route Administration Date Status Comme nts Influenza Unknown 03/31/2017 Administered Influenza Unknown 03/31/2018 Administered Social History Tobacco Use: Social History Observation Description Date Details (start date - stop date) Never Smoker NA - NA Social History Drugs/Alcohol: Social Info Question Answer Notes Alcohol Screen Did you have a drink containing alcohol in the past year? Yes How often did you have a drink containing alcohol in the past year? Monthly or less (1 point) How many drinks did you have on a typical day when you were drinking in the past year? 1 or 2 drinks (0 point) How often did you have 6 or more drinks on one occasion in the past year? Never (0 point) Points 1 Interpretation Negative Tobacco Use: Social Info Question Answer Notes Tobacco Use/Smoking Patient is a nonsmoker Additional Details Category Social Info Options Details Miscellaneous: Marital status: Occupation: retired Section Notes: Nonsmoker; very occasional a lcohol Nonsmoker; very occasional a lcohol Problems Problem Type SNOMED Code ICD Code Onset Dates Problem Status W/U Status Risk Notes Problem Information temporarily unavailable Encounter for screening for malignant neoplasm of colon (Z12.11) Active confirmed Problem Information temporarily unavailable Abdominal bloating (R14.0) Active confirmed Problem Information temporarily unavailable Abdominal pain, epigastric (R10.13) Active confirmed Problem Information temporarily unavailable Gastroesophageal reflux disease without esophagitis (K21.9) Active confirmed Problem Information temporarily unavailable Constipation, unspecified constipation type (K59.00) Active confirmed Encounters Encounter Location Date Provider Diagnosis [facility] [address] [facility] [address] [place] [address] 08/30/2024 Pete Henson Plan Of Treatment Future Test Test Name Order Date COLONOSCOPY 05/25/2017 Insurance Providers Payer Name Payer Address Payer Phone Subscriber Number Group Number Insured Name Patient Relationship to Insured Coverage Start Date Coverage End Date [facility] Medicare Adv (PPO) [address] [address] [place] [address] [id number] LEO HACKETT Self - patient is the insured MEDICAID OF [facility] [address] [place] [address] [id number] ROXANN LEO Self - patient is the insured Medical (General) History Medical History History ICD Code Denies [place],DM,CVA,renal disease Glaucoma Hypertension Hypercholesterolemia Seasonal allergies-gets injections [...]
== END 2025-06-18 11:06 | disposition home or self-care (01) ==
LOC: HO.HMGAL 11:05
PROVIDERS: PCP Internal Medicine; Visit Provider Registered Nurse Emergency
DX: J30.89 Other allergic rhinitis (principal)
CPT/HCPCS: 95117; 95165

== ENCOUNTER 2025-07-02 11:03 | Outpatient (AMB) | payer MEDICARE, MEDICAID, SELFPAY ==
--- OUTSIDE RECORDS SUMMARY | 2025-07-02 13:10 | XMS_ITS | Patient Health Record ---
Author Organization [facility] Address [address] [place] [address] Care Team Providers Care Curatorial Specialist Name Role Phone Jeannette Zelaya Primary Care Provider Pete Deshpande Unavailable [phone] Allergies Allergen (clinical drug ingredient) Drug/Non Drug [...] Problem Screening for malignant neoplasm of colon (497886665) Encounter for screening for malignant neoplasm of colon (Z12.11) Active confirmed Problem Abdominal bloating (240503210) Abdominal bloating (R14.0) Active confirmed Problem Epigastric pain (30617693) Abdominal pain, epigastric (R10.13) Active confirmed Problem Gastroesophageal reflux disease without esophagitis (019495844) Gastroesophageal reflux disease without esophagitis (K21.9) Active confirmed Problem Constipation (97106883) Constipation, unspecified constipation type (K59.00) Active confirmed Encounters Encounter Location Date Provider Diagnosis [facility] [address] [place] [address] 08/30/2024 Pete Henson Plan Of Treatment Future Test Test Name Order Date COLONOSCOPY 05/25/2017 Insurance Providers Payer Name Payer Address Payer Phone Subscriber Number Group Number Insured Name Patient Relationship to Insured Coverage Start Date Coverage End Date [facility] Medicare Adv (PPO) [address] [address] [place] [address] [id number] LEO HACKETT Self - patient is the insured MEDICAID OF [employer] [address] [place] [address] [id number] LEO HACKETT Self - patient is the [...]
== END 2025-07-02 11:04 | disposition home or self-care (01) ==
LOC: HO.HMGAL 11:03
PROVIDERS: PCP Internal Medicine; Visit Provider Registered Nurse Emergency
DX: J30.89 Other allergic rhinitis (principal)
CPT/HCPCS: 95117; 95165

== ENCOUNTER 2025-07-16 10:49 | Outpatient (AMB) | payer MEDICARE, MEDICAID, SELFPAY | END 2025-07-16 10:51 | disposition home or self-care (01) | LOC: HO.HMGAL 10:49 | PROVIDERS: PCP Internal Medicine; Visit Provider Registered Nurse Emergency | DX: J30.89 Other allergic rhinitis (principal) | CPT/HCPCS: 95117; 95165 ==

== ENCOUNTER 2025-07-30 11:13 | Outpatient (AMB) | payer MEDICARE, MEDICAID, SELFPAY ==
--- OUTSIDE RECORDS SUMMARY | 2025-07-30 12:47 | XMS_ITS | Patient Health Record ---
Author Organization [facility] Address [address] [place] [address] Care Team Providers Care Early Childhood Specialist Name Role Phone Jeannette Zelaya Primary Care Provider Pete Deshpande Unavailable [phone] Allergies Allergen (clinical drug ingredient) Drug/Non Drug [...] eded Orally 2 times a day Active raNITIdine HCl 300 MG Tablet 1 tablet Orally [...] Problem Screening for malignant neoplasm of colon (580389408) Encounter for screening for malignant neoplasm of colon (Z12.11) Active confirmed Problem Abdominal bloating (324802374) Abdominal bloating (R14.0) Active confirmed Problem Epigastric pain (30771742) Abdominal pain, epigastric (R10.13) Active confirmed Problem Gastroesophageal reflux disease without esophagitis (253029569) Gastroesophageal reflux disease without esophagitis (K21.9) Active confirmed Problem Constipation (84029134) Constipation, unspecified constipation type (K59.00) Active confirmed Encounters Encounter Location Date Provider Diagnosis [facility] [address] [place] [address] 08/30/2024 Pete Henson Plan Of Treatment Future Test Test Name Order Date COLONOSCOPY 05/25/2017 Insurance Providers Payer Name Payer Address Payer Phone Subscriber Number Group Number Insured Name Patient Relationship to Insured Coverage Start Date Coverage End Date [facility] Medicare Adv (PPO) [address] [address] [place] [address] [id number] LEO HACKETT Self - patient is the insured MEDICAID OF [place] [address] [place] [address] [id number] LEO HACKETT Self - patient is the insured Medical (General) History Medical History History ICD Code Denies [place],DM,CVA,renal disease Glaucoma Hypertension Hypercholesterolemia Seasonal allergies-gets injections [...]
--- OUTSIDE RECORDS SUMMARY | 2025-07-30 12:47 | XMS_ITS | Clinical Summary ---
Author Organization [facility] Address [address] [place] [address] Phone Care Team Providers Care Marketing Professor Name Role Phone Jeannette Zelaya MD Primary [...] patient's age to complete this topic Insurance [facility] ([id number]) SATINDER CURTIS [id number] [facility] ([id number]) [place] CURT[place] [id number] Care Teams Marketing Professor Relationship Specialty Start Date End Date Jeannette Zelaya MD [address] [facility] 216 [place], [place] PCP - General 08/10/20
== END 2025-07-30 11:13 | disposition home or self-care (01) ==
LOC: HO.HMGAL 11:13
PROVIDERS: PCP Internal Medicine; Visit Provider Registered Nurse Emergency
DX: J30.89 Other allergic rhinitis (principal)
CPT/HCPCS: 95117; 95165